=== PATIENT | male | born 1955 | race American Indian/Alaskan Native ===

== ENCOUNTER 2016-11-01 12:54 | Outpatient (CLI) | payer MEDICAID | END 2016-11-01 12:55 | disposition EMS.NT | LOC: EMS 12:54 | PROVIDERS: ATTEND Surgery | DX: R56.9 Unspecified convulsions (principal) ==

== ENCOUNTER 2019-05-22 16:52 | Outpatient (CLI) | payer MEDICAID | END 2019-05-22 16:53 | disposition critical access hospital (66) | LOC: EMS 16:52 | PROVIDERS: ATTEND Surgery | DX: R44.0 Auditory hallucinations (principal) | CPT/HCPCS: A0425; A0429; A0999 ==

== ENCOUNTER 2019-05-22 17:24 | Inpatient (IN) | payer MEDICAID ==
[2019-05-22] MEDS ORDERED: LORazepam 2 MG/ML VIAL IVP STA ×3 (17:31→23:21)
[2019-05-22] MEDS ORDERED: SODIUM CHLORIDE 0.9% 1,000 ML IV ONE (17:31)
--- NOTE | 2019-05-22 17:33 | ED Physician Documentation ---
<Mitul Truong M - Last Filed: 05/22/19 22:17> PD HPI MHE - Stated complaint Stated Complaint: MHE - Chief complaint Chief Complaint: MHE - History obtained from History obtained from: Patient - History of Present Illness Primary symptom: Psychosis (63-year-old gentleman presents by ambulance. He is obviously having a panic attack and is agitated. Reportedly has been having auditory hallucinations. Was supposed to be on Zyprexa but has not had it for about 2 months. Denies drug use, but suspicion is high because of picked at skin lesions and saying that worms are coming out of his abrasions. Denies pain or injuries.) Review of Systems Ten Systems: 10 systems reviewed and negative Constitutional: denies: Fever, Chills Respiratory: denies: Dyspnea, Cough GI: denies: Abdominal Pain, Nausea, Vomiting PD PAST MEDICAL HISTORY - Past Medical History Past Medical History: Yes - Past Surgical History Past Surgical History: Yes General: Splenectomy - Present Medications Home Medications: Ambulatory Orders Medication Instructions Recorded Confirmed Metformin HCl 1,000 mg PO BID 05/23/19 05/23/19 Metoprolol Tartrate [Lopressor] 50 mg PO BID 05/23/19 05/23/19 Tamsulosin [Flomax] 0.8 mg PO DAILY 05/23/19 05/23/19 - Allergies Allergies/Adverse Reactions: Allergies Allergy/AdvReac Type Severity Reaction Status Date / Time baclofen Allergy Hives Verified 05/22/19 17:38 ketorolac [From Toradol] Allergy Hives Verified 05/22/19 17:38 - Social History Does the pt smoke?: Yes - Family History Family history: reports: Non contributory PD ED PE NORMAL - Vitals Vital signs reviewed: Yes - General General: Alert and oriented X 3, Other (He is anxious and hyperventilating, mostly keeping his eyes closed somewhat disheveled.) - HEENT HEENT: PERRL, Pharynx benign - Neck Neck: Supple, no meningeal sign, No bony TTP - Cardiac Cardiac: RRR, No murmur - Respiratory Respiratory: No respiratory distress, Clear bilaterally - Abdomen Abdomen: Normal bowel sounds, Soft, Non tender - Back Back: No CVA TTP, No spinal TTP - Derm Derm: Other (Numerous picked at skin lesions mostly on the upper extremities. No evidence of infections.) - Extremities Extremities: Other (Deformity of the left second finger at the tip, states this is chronic. NTTP.) - Neuro Neuro: Alert and oriented X 3, No motor deficit, No sensory deficit, Normal speech PD MEDICAL DECISION MAKING - ED course ED course: 63-year-old gentleman presents with psychiatric symptoms likely due to methamphetamine intoxication. He was administered IV fluids and 2 mg of Ativan after which he was much calmer and more coherent. He was advised to stop using methamphetamines. He boarded in the emergency department for an extended period of time because no ride was available for him. He declined inpatient treatment for his drug abuse. That said because of the lack of ride in the time of night he was encouraged to stay in the emergency department pending more safe disposition in the morning. He needed a little more anxiolysis with Haldol and more Ativan. Departure - Departure Disposition: ED Place in Observation Clinical Impression: Psychiatric symptoms, Methamphetamine abuse, Dehydration Rhabdomyolysis Qualifiers: Rhabdomyolysis type: non-traumatic Qualified Code(s): M62.82 - Rhabdomyolysis Condition: Good Record reviewed to determine appropriate education?: Yes Discharge Date/Time: 05/23/19 16:50 <Royal Guerrero - Last Filed: 05/23/19 17:45> Results - Vitals Vitals: Vital Signs - 24 hr 05/22/19 05/23/19 05/23/19 22:15 02:26 04:35 Temperature Heart Rate 90 117 H 115 H Respiratory 16 20 18 Rate Blood Pressure 127/87 H 149/101 H O2 Saturation 97 100 100 05/23/19 05/23/19 05/23/19 06:51 08:21 10:14 Temperature Heart Rate 135 H 137 H 128 H Respiratory 18 26 H 22 Rate Blood Pressure 129/96 H 158/105 H 140/79 H O2 Saturation 100 98 99 05/23/19 05/23/19 13:25 14:40 Temperature 36.9 C Heart Rate 118 H 113 H Respiratory 28 H 22 Rate Blood Pressure 127/90 H O2 Saturation 98 99 Oxygen O2 Source Room air - Labs Labs: Laboratory Tests 05/22/19 05/22/19 05/22/19 18:10 18:10 18:10 WBC 6.8 RBC 5.53 Hgb 15.2 Hct 46.6 MCV 84.3 MCH 27.5 MCHC 32.6 RDW 14.2 Plt Count 170 MPV 10.1 Neut # (Auto) 4.7 Lymph # (Auto) 1.3 L [place] # (Auto) 0.6 Eos # (Auto) 0.1 Baso # (Auto) 0.1 Absolute Nucleated RBC 0.00 Nucleated RBC % 0.0 PT INR Sodium 137 Potassium 4.3 Chloride 103 Carbon Dioxide 21 Anion Gap 13.0 BUN 13 Creatinine 0.9 Estimated GFR (MDRD) 86 L Glucose 102 H Calcium 9.4 Total Bilirubin 1.1 H AST 95 H ALT 83 H Alkaline Phosphatase 93 Total Creatine Kinase 105 Total Protein 9.2 H Albumin 4.3 Globulin 4.9 H Albumin/Globulin Ratio 0.9 L Lipase 35 TSH 0.40 Urine Color Urine Clarity Urine pH Ur Specific Girard Urine Protein Urine Glucose (UA) Urine Ketones Urine Occult Blood Urine Nitrite Urine Bilirubin Urine Urobilinogen Ur Leukocyte Esterase Ur Microscopic Review Urine Culture Comments Salicylates < 6.0 Urine Opiates Screen Ur Oxycodone Screen Urine Methadone Screen Ur Propoxyphene Screen Acetaminophen < 10 L Ur Barbiturates Screen Ur Tricyclics Screen Ur Phencyclidine Scrn Ur Amphetamine Screen U Methamphetamines Scrn U Benzodiazepines Scrn Urine Cocaine Screen U Cannabinoids Screen Ethyl Alcohol < 5.0 05/22/19 05/23/19 05/23/19 18:40 14:28 14:28 WBC 14.5 H RBC 4.86 Hgb 13.2 L Hct 40.1 L MCV 82.5 MCH 27.2 MCHC 32.9 RDW 14.5 Plt Count 193 MPV 10.6 Neut # (Auto) 11.8 H Lymph # (Auto) 1.3 L [place] # (Auto) 1.2 H Eos # (Auto) 0.0 Baso # (Auto) 0.0 Absolute Nucleated RBC 0.00 Nucleated RBC % 0.0 PT INR Sodium 145 Potassium 3.7 Chloride 110 Carbon Dioxide 21 Anion Gap 14.0 H BUN 17 Creatinine 1.2 Estimated GFR (MDRD) 62 L Glucose 123 H Calcium 9.3 Total Bilirubin 2.1 H AST 103 H ALT 73 H Alkaline Phosphatase 78 Total Creatine Kinase 3030 H* Total Protein 8.3 H Albumin 4.2 Globulin 4.1 Albumin/Globulin Ratio 1.0 Lipase 32 TSH Urine Color YELLOW Urine Clarity CLEAR Urine pH 8.0 H Ur Specific Girard 1.010 Urine Protein NEGATIVE Urine Glucose (UA) NEGATIVE Urine Ketones NEGATIVE Urine Occult Blood NEGATIVE Urine Nitrite NEGATIVE Urine Bilirubin NEGATIVE Urine Urobilinogen 1 (NORMAL) Ur Leukocyte Esterase NEGATIVE Ur Microscopic Review NOT INDICATED Urine Culture Comments NOT INDICATED Salicylates Urine Opiates Screen POSITIVE H Ur Oxycodone Screen NEGATIVE Urine Methadone Screen NEGATIVE Ur Propoxyphene Screen NEGATIVE Acetaminophen Ur Barbiturates Screen NEGATIVE Ur Tricyclics Screen NEGATIVE Ur Phencyclidine Scrn NEGATIVE Ur Amphetamine Screen POSITIVE H U Methamphetamines Scrn POSITIVE H U Benzodiazepines Scrn NEGATIVE Urine Cocaine Screen NEGATIVE U Cannabinoids Screen NEGATIVE Ethyl Alcohol 05/23/19 14:28 WBC RBC Hgb Hct MCV MCH MCHC RDW Plt Count MPV Neut # (Auto) Lymph # (Auto) [place] # (Auto) Eos # (Auto) Baso # (Auto) Absolute Nucleated RBC Nucleated RBC % PT 14.3 H INR 1.3 H Sodium Potassium Chloride Carbon Dioxide Anion Gap BUN Creatinine Estimated GFR (MDRD) Glucose Calcium Total Bilirubin AST ALT Alkaline Phosphatase Total Creatine Kinase Total Protein Albumin Globulin Albumin/Globulin Ratio Lipase TSH Urine Color Urine Clarity Urine pH Ur Specific Girard Urine Protein Urine Glucose (UA) Urine Ketones Urine Occult Blood Urine Nitrite Urine Bilirubin Urine Urobilinogen Ur Leukocyte Esterase Ur Microscopic Review Urine Culture Comments Salicylates Urine Opiates Screen Ur Oxycodone Screen Urine Methadone Screen Ur Propoxyphene Screen Acetaminophen Ur Barbiturates Screen Ur Tricyclics Screen Ur Phencyclidine Scrn Ur Amphetamine Screen U Methamphetamines Scrn U Benzodiazepines Scrn Urine Cocaine Screen U Cannabinoids Screen Ethyl Alcohol PD MEDICAL DECISION MAKING - ED course ED course: Overnight the patient continued to have akasthesia and his level of interaction was poor. He required constant redirection and was unable to get comfortable in any position. We attempted to obtain a CT scan of the head and the patient was to akathetic to allow this. We administered further Zyprexa and when this had little or no effect we administered Ativan again with little effect and subsequently we administered Benadryl thinking he may have some component of extra pyramidal symptoms. This again had no significant effect. The patient had pulled his IV out earlier and we elected to administer 300 mg of ketamine and we were able to place an IV under ultrasound guidance and administer more fluids as well as perform the CT scan of the head. His repeat blood work showed elevation in his CPK and the patient has not cleared. We expected this patient to clear overnight in the emergency department and he has not. He continues to have altered level of consciousness repeat labs and CT scan were without further revelations. At this point an observation bed in the hospital until the patient clears is sought. He has some rhabdomyolysis and he will require continued hydration. Dr. Estrada is consulted in the case and graciously agrees to care for the patient in the hospital.
[2019-05-22 18:18] LABS: BASOPHILS # (AUTO) 0.1 10^3/uL (0.0-0.1); BASOPHILS % (AUTO) 0.7 %; EOSINOPHILS # (AUTO) 0.1 10^3/uL (0.0-0.7); EOSINOPHILS % (AUTO) 1.9 %; HGB - HEMOGLOBIN 15.2 g/dL (14.0-18.0); LYMPHOCYTES # (AUTO) 1.3 10^3/uL (1.5-3.5); LYMPHOCYTES % (AUTO) 19.5 %; MEAN CORPUSCULAR HEMOGLOBIN 27.5 pg (27.0-31.0); MEAN CORPUSCULAR HGB CONC 32.6 g/dL (32.0-36.0); MEAN CORPUSCULAR VOLUME 84.3 fL (80.0-94.0); MEAN PLATELET VOLUME 10.1 fL (7.4-11.4); MONOCYTES # (AUTO) 0.6 10^3/uL (0.0-1.0); MONOCYTES % (AUTO) 8.1 %; NEUTROPHILS # (AUTO) 4.7 10^3/uL (1.5-6.6); NEUTROPHILS % (AUTO) 69.4 %; PLT - PLATELET COUNT 170 10^3/uL (130-450); RED BLOOD COUNT 5.53 10^6/uL (4.70-6.10); RED CELL DISTRIBUTION WIDTH 14.2 % (12.0-15.0); WHITE BLOOD COUNT 6.8 x10^3/uL (4.8-10.8)
[2019-05-22 18:36] LABS: ACETAMINOPHEN < 10 ug/mL (10-30); ALBUMIN 4.3 g/dL (3.2-5.5); ALBUMIN/GLOBULIN RATIO 0.9 (1.0-2.2); ALKALINE PHOSPHATASE 93 IU/L (42-121); ALT ALANINE AMINOTRANSFERASE 83 IU/L (10-60); AST ASPARTATE AMINOTRANSFERASE 95 IU/L (10-42); BILIRUBIN,TOTAL 1.1 mg/dL (0.2-1.0); BUN - BLOOD UREA NITROGEN 13 mg/dL (6-20); CALCIUM 9.4 mg/dL (8.5-10.3); CARBON DIOXIDE - CO2 21 mmol/L (21-32); CHLORIDE 103 mmol/L (101-111); CK- CREATINE KINASE 105 IU/L (22-269); CREATININE 0.9 mg/dL (0.6-1.2); GFR - MDRD 86 (>89); GLUCOSE 102 mg/dL (70-100); LIPASE 35 U/L (22-51); SALICYLATE < 6.0 mg/dL; SODIUM 137 mmol/L (135-145); TOTAL PROTEIN 9.2 g/dL (6.7-8.2)
[2019-05-22 18:46] LABS: MUDS CUTOFF CONCENTRATIONS CUTOFF CONC BELOW:
[2019-05-22 18:54] LABS: BILIRUBIN,URINE NEGATIVE (NEGATIVE); GLUCOSE, URINE (UA) NEGATIVE (NEGATIVE); KETONES,URINE (UA) NEGATIVE (NEGATIVE); LEUKOCYTE ESTERASE, URINE NEGATIVE (NEGATIVE); NITRITE,URINE NEGATIVE (NEGATIVE); OCCULT BLOOD,URINE NEGATIVE (NEGATIVE); PROTEIN,URINE NEGATIVE (NEGATIVE); UROBILINOGEN,URINE 1 (NORMAL) E.U./dL (NORMAL)
[2019-05-22 18:59] LABS: CLARITY,URINE CLEAR (CLEAR)
[2019-05-22 19:05] LABS: AMPHETAMINE SCREEN,URINE POSITIVE (NEGATIVE); BENZODIAZEPINES SCREEN, URINE NEGATIVE (NEGATIVE); COCAINE SCREEN URINE NEGATIVE (NEGATIVE); METHADONE SCREEN, URINE NEGATIVE (NEGATIVE); METHAMPHETAMINES SCREEN, URINE POSITIVE (NEGATIVE); OPIATE SCREEN, URINE POSITIVE (NEGATIVE); OXYCODONE SCREEN, URINE NEGATIVE (NEGATIVE); PROPOXYPHENE SCREEN, URINE NEGATIVE (NEGATIVE); TRICYCLIC ANTIDEPRESSANT,URINE NEGATIVE (NEGATIVE)
[2019-05-22] MEDS ORDERED: HALOPERIDOL 5 MG/ML VIAL IVP ONE (21:59)
[2019-05-22] MEDS ORDERED: LORazepam 2 MG/ML VIAL ONE (23:21)
[2019-05-22] MEDS ORDERED: OLANZapine 10 MG VIAL IM STA (23:43)
[2019-05-23] MEDS ORDERED: diazePAM INJ 5 MG/ML SYRINGE IVP STA (00:18)
[2019-05-23] MEDS ORDERED: diazePAM INJ 5 MG/ML SYRINGE ONE (00:19)
[2019-05-23] MEDS ORDERED: OLANZapine 10 MG VIAL IM STA (10:01)
[2019-05-23] MEDS ORDERED: LORazepam 2 MG/ML VIAL IM STA (11:33)
[2019-05-23] MEDS ORDERED: diphenhydrAMINE INJ 50 MG/ML VIAL IM STA (13:15)
[2019-05-23] MEDS ORDERED: KETAMINE 500 MG/10 ML VIAL IM STA (13:56)
[2019-05-23] MEDS ORDERED: SODIUM CHLORIDE 0.9% 1,000 ML IV ONE ×3 (14:26→15:02)
[2019-05-23 14:38] LABS: BASOPHILS % (AUTO) 0.3 %; EOSINOPHILS % (AUTO) 0.1 %; HGB - HEMOGLOBIN 13.2 g/dL (14.0-18.0); LYMPHOCYTES # (AUTO) 1.3 10^3/uL (1.5-3.5); MEAN CORPUSCULAR HEMOGLOBIN 27.2 pg (27.0-31.0); MEAN CORPUSCULAR HGB CONC 32.9 g/dL (32.0-36.0); MEAN CORPUSCULAR VOLUME 82.5 fL (80.0-94.0); MEAN PLATELET VOLUME 10.6 fL (7.4-11.4); MONOCYTES # (AUTO) 1.2 10^3/uL (0.0-1.0); MONOCYTES % (AUTO) 8.3 %; NEUTROPHILS # (AUTO) 11.8 10^3/uL (1.5-6.6); NEUTROPHILS % (AUTO) 81.5 %; PLT - PLATELET COUNT 193 10^3/uL (130-450); RED BLOOD COUNT 4.86 10^6/uL (4.70-6.10); RED CELL DISTRIBUTION WIDTH 14.5 % (12.0-15.0); WHITE BLOOD COUNT 14.5 x10^3/uL (4.8-10.8)
[2019-05-23 14:59] LABS: ALBUMIN 4.2 g/dL (3.2-5.5); BILIRUBIN,TOTAL 2.1 mg/dL (0.2-1.0); CALCIUM 9.3 mg/dL (8.5-10.3); CREATININE 1.2 mg/dL (0.6-1.2); TOTAL PROTEIN 8.3 g/dL (6.7-8.2)
--- NOTE | 2019-05-23 15:01 | CT Report ---
Reason: altered LOC Procedure Date: 05/23/2019 Accession Number: [id number] / [id number] Procedure: CT - HEAD WO CPT Code: Final Report FULL RESULT: EXAM: CT HEAD EXAM DATE: 05/23/2019 02:37 PM. CLINICAL HISTORY: Altered level of consciousness. COMPARISON: None. TECHNIQUE: Multiaxial CT images were obtained from the foramen magnum to the vertex. Reformats: Sagittal and coronal. IV contrast: None. In accordance with CT protocol optimization, one or more of the following dose reduction techniques were utilized for this exam: automated exposure control, adjustment of mA and/or KV based on patient size, or use of iterative reconstructive technique. FINDINGS: PARENCHYMA: No acute hemorrhage, transcortical infarction or mass. Normal gorman-white differentiation. EXTRA-AXIAL SPACES: No extra-axial fluid collections. No midline shift. VENTRICLES/SULCI: Enlargement of the lateral and third ventricles with prominence of the cortical sulci consistent with mild cerebral volume loss. VASCULAR STRUCTURES: Arterial calcifications consistent with atherosclerosis. SINUSES: The visible paranasal sinuses and mastoid air cells are unremarkable. ORBITS: Unremarkable. BONES: No displaced acute calvarial fracture. Old left nasal bone fracture. OTHER: None. IMPRESSION: 1. No acute intracranial findings. RADIA
[2019-05-23] MEDS ORDERED: ONDANSETRON 4 MG/2 ML VIAL IVP PRN (15:52)
[2019-05-23 16:18] LABS: INR 1.3 (0.8-1.2); PT - PROTHROMBIN TIME 14.3 secs (9.9-12.6)
--- NOTE | 2019-05-23 16:24 | PHARMACY PROGRESS NOTE ---
- Best Possible Medication History Admit Date and Time: 05/23/19 1547 Processed by: Pharmacy Medication History completed: Yes Patient Interview: Pt unable to participate Secondary Source(s): Pharmacy records, Insurance records As the person ultimately responsible for medication therapy, providers are able to order a medication from an existing home medication list in [facility] via the "Reconcile Routine" prior to Confirmation of that medication by youth accommodation support worker. Such practice is discouraged except when the physician, in their clinical judgment, deems that a medical need exists for a medication without regard to previous use.
--- NOTE | 2019-05-23 16:49 | XRAY Report ---
Reason: Altered mental status Procedure Date: 05/23/2019 Accession Number: [id number] / [id number] Procedure: XR - Chest 1 View X-Ray CPT Code: 93763 Final Report FULL RESULT: EXAM: CHEST RADIOGRAPHY EXAM DATE: 05/23/2019 04:14 PM. CLINICAL HISTORY: Altered mental status. COMPARISON: XR RIBS UNILAT W/ PA CHEST MIN 3 VIEWS 05/01/2012 3:17 PM. TECHNIQUE: 1 view. FINDINGS: LUNGS: The lungs are hypoventilatory with compressive changes. The aerated portions of the lungs are clear, however the lung bases are poorly evaluated. PLEURA: No significant pleural effusion. No clinically significant pneumothorax. MEDIASTINUM: Heart and mediastinal contours are notable for aortic calcification. The cardiac silhouette is normal in size. BONES: Status post cervical spine fusion. Again old left-sided rib fracture deformities. IMPRESSION: Expiratory chest x-ray. No acute disease within the limits of this study, however, the lung bases are poorly evaluated and cannot exclude a basilar process. RADIA
[2019-05-23 16:56] LABS: VBG BASE EXCESS -3.4 mmol/L (-2 - +2); VBG PCO2 28.5 mmHg (41-51); VBG PH 7.448 (7.31-7.41); VBG TOTAL CO2 20.1 mmol/L (24-29)
[2019-05-23] MEDS ORDERED: LIDOCAINE 2% URO-JET 5 ML SYRINGE UR ONE (17:18)
[2019-05-23] MEDS: DEXTROSE 5%-0.9% NACL 1,000 ML IV SCH (18:00)
[2019-05-23] MEDS: LORazepam 2 MG/ML VIAL IVP PRN ×3 (18:00→23:41)
[2019-05-23] MEDS: SODIUM CHLORIDE FLUSH 0.9% 10 ML SYRINGE IVP SCH ×2 (18:10→21:53)
[2019-05-23] MEDS: INSULIN REGULAR HUMAN 300 UNIT/3 ML VIAL SUBQ SCH (18:24)
--- NOTE | 2019-05-23 18:35 | HISTORY & PHYSICAL EXAMINATION ---
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 The patient presented to the Emergency Room with complaints of auditory hallucinations and "not feeling right." There was a history obtained from the by the ER provider that stated that he is usually on Zyprexa, but has not been taking it for 2 months. In the Emergency Room, he was confused, having active hallucinations, and a drug screen showed the presence of methamphetamine and amphetamine. The ER management included waiting for the effect of Methamphetamine to dissipate in order to either discharge him or have a psych evaluation. He continued to have restlessness over a 12-hour period and eventually the decision by the ER doctor was to have a head CT done. Because he was so restless and agitated, had pulled out his IV, he required sedatives in order to undergo the CT, and he received Zyprexa, Ativan, Valium and eventually Ketamine, which gave him adequate sedation to not move in the CT scanner. The CT showed no active problems. Following the Ketamine, he became obtunded, and repeat lab tests were done that showed a new elevation of total creatinine kinase from 105 the previous evening to now 3030, approximately 22 hours later. The patient is being admitted for management of new rhabdomyolysis, and his altered mental status after sedatives with akathisia (restlessness) likley related to Meth use. PAST MEDICAL HISTORY: Psych disorder on Zyprexa, IV drug use history, possibly diabetes since Metformin is on his medication list. ALLERGIES: BACLOFEN, KETOROLAC. MEDICATIONS: Unknown, but are possibly: 1. Flomax. 2. Metformin. 3. Lopressor. REVIEW OF SYSTEMS: One old medical record in the form of a discharge summary was obtained from [facility] from one month ago, and it indicates that the patient has a history of previous MIs, IV methamphetamine and heroin use, and was sent from the methadone clinic to [facility] at that time to evaluate an irregular heart rate and chest pain. On that discharge summary, it shows that he was taking metformin, naloxone, olanzapine, tamsulosin, and metoprolol. In the past, he was on Xanax, aspirin, sublingual nitroglycerin p.r.n., and Lidoderm patch. From this review of his discharge summary, the review of systems was performed, the pertinent positives are listed, and the rest are negative. PAST SURGICAL HISTORY: Fusion of his cervical spine and lumbar fusion. SOCIAL HISTORY: Currently a smoker, former alcohol user, but not currently, former iv heroin use, and current methamphetamine user. FAMILY HISTORY: Unobtainable at this time because he is obtunded and it does not show up on the discharge summary from [facility]. PHYSICAL EXAMINATION GENERAL: Poorly kempt male who appears older than his age. He is restless and intermittently moving all 4 extremities, picking at his skin and raising his head, but does not open his eyes. He has moaned and has answered with 1- or 2- word responses, and he did follow the nurses instructions once and raised his arm for the blood pressure cuff to be applied. VITAL SIGNS: Currently, the blood pressure is 145/110, heart rate 115-120 in sinus tachycardia, room air saturation 97%, afebrile. HEENT: Reveals surgery of the tip of his nose, which appears to have been amputated. Poor oral dentition. Dry oral mucosa. NECK: Without JVD in a supine position. CHEST: Clear. HEART: Distant, tachycardic. ABDOMEN: Soft, not distended. EXTREMITIES: No clubbing, cyanosis or edema. Multiple scars in different phases of healing of his forearms and his lower legs. NEUROLOGIC: Obtunded, moving all extremities spontaneously, does not communicate, occasionally moaning, intermittently restless and picking at his body parts. LABORATORY DATA: Normal electrolytes. Anion gap 14, glucose 123. Bilirubin went from 1.1 to 2.1, AST 95-103, ALT 83-73. Creatinine kinase 105 then increased to 3030. Normal albumen and lipase normal. Normal TSH of 0.4. White blood count was 6.8 last night, and this afternoon is 14.5. Hemoglobin is now 13.2, normal platelet count 193. Urinalysis not remarkable except a pH of 8. Venous blood gases a pH of 7.44. The INR is elevated mildly at 1.3. Toxicology was done, when he first presented 20 hours ago, showed positive opiates, no salicylates, no acetaminophen, positive amphetamines and methamphetamines. Chest x-ray: No active pulmonary disease. No EKG was done. Head CT showed enlargement of the ventricles and mild cerebral volume loss. Arterial calcifications consistent with atherosclerosis. No acute intracranial findings. IMPRESSION/DIAGNOSES 1. Rhabdomyolysis. 2. Akathisia. 3. Tachycardia. 4. Methamphetamine use. 5. History of psychiatric disorder. 6. Intravenous drug abuse. 7. Diabetes mellitus. 8. Elevated liver function tests. PLAN: Admit the patient to the ICU on telemetry. Begin IV fluids for treating the rhabdomyolysis, and follow his total CK serum level daily. Use Ativan if needed for agitation, and resume his Zyprexa either IM or p.o. dosing. Begin point of care glucose checks and sliding scale insulin coverage in a patient who is n.p.o., and check A1c level in the morning. Obtain an EKG because of the tachycardia. When he is more awake, he may require 1:1 monitoring because of the psych disorder and unknown recent history. Follow his CMP daily, regarding the elevated liver function tests. CODE STATUS: FULL CODE. DEEP VENOUS THROMBOSIS PROPHYLAXIS: SCDs. ATTESTATION: The patient is expected to be discharged or transferred to another facility within 96 hours: Yes. cc: Bailee Kaplan MD TD: 05/23/2019 18:02 MTDD
[2019-05-23] MEDS ORDERED: ethyl alcohoL 62% SWAB AMPULE NAS ONE (20:35)
[2019-05-23] MEDS: FAMOTIDINE 20 MG/2 ML VIAL IVP SCH (20:36)
[2019-05-23] MEDS: ethyl alcohoL 62% SWAB AMPULE NAS SCH (20:42)
[2019-05-23] MEDS ORDERED: HALOPERIDOL 5 MG/ML VIAL IVP ONE (21:24)
[2019-05-23] MEDS: SODIUM CHLORIDE FLUSH 0.9% 10 ML SYRINGE IVP PRN ×2 (21:54→23:41)
[2019-05-24] MEDS: INSULIN REGULAR HUMAN 300 UNIT/3 ML VIAL SUBQ SCH ×4 (00:02→18:30)
[2019-05-24] MEDS: HYDROmorphone 1 MG/ML SYRINGE IVP PRN ×4 (03:05→21:53)
[2019-05-24] MEDS: DEXTROSE 5%-0.9% NACL 1,000 ML IV SCH (04:25)
[2019-05-24 05:06] LABS: BASOPHILS % (AUTO) 0.3 %; EOSINOPHILS # (AUTO) 0.1 10^3/uL (0.0-0.7); EOSINOPHILS % (AUTO) 0.9 %; HGB - HEMOGLOBIN 11.9 g/dL (14.0-18.0); LYMPHOCYTES # (AUTO) 1.6 10^3/uL (1.5-3.5); LYMPHOCYTES % (AUTO) 15.8 %; MEAN CORPUSCULAR HEMOGLOBIN 26.4 pg (27.0-31.0); MEAN CORPUSCULAR HGB CONC 31.6 g/dL (32.0-36.0); MEAN CORPUSCULAR VOLUME 83.6 fL (80.0-94.0); MEAN PLATELET VOLUME 10.2 fL (7.4-11.4); MONOCYTES # (AUTO) 0.8 10^3/uL (0.0-1.0); MONOCYTES % (AUTO) 7.8 %; NEUTROPHILS # (AUTO) 7.6 10^3/uL (1.5-6.6); NEUTROPHILS % (AUTO) 74.7 %; PLT - PLATELET COUNT 148 10^3/uL (130-450); RED BLOOD COUNT 4.51 10^6/uL (4.70-6.10); RED CELL DISTRIBUTION WIDTH 14.6 % (12.0-15.0); WHITE BLOOD COUNT 10.2 x10^3/uL (4.8-10.8)
[2019-05-24 05:09] LABS: VBG PH 7.399 (7.31-7.41)
[2019-05-24 05:24] LABS: HB2 TOTAL 12.4 g/dL; HEMOGLOBIN A1C 0.59 g/dL; HEMOGLOBIN A1C % 6.5 % (4.6-6.2)
[2019-05-24 06:14] LABS: ALBUMIN 3.4 g/dL (3.2-5.5); ALBUMIN/GLOBULIN RATIO 0.9 (1.0-2.2); BILIRUBIN,TOTAL 1.3 mg/dL (0.2-1.0); CALCIUM 8.3 mg/dL (8.5-10.3); CREATININE 0.9 mg/dL (0.6-1.2); MAGNESIUM 1.8 mg/dL (1.7-2.8); PHOSPHORUS 3.8 mg/dL (2.5-4.6); TOTAL PROTEIN 7.4 g/dL (6.7-8.2)
[2019-05-24] MEDS: POTASSIUM CHLOR 10 MEQ/100 ML 10 MEQ/100 ML BAG IV SCH ×4 (07:05→10:47)
[2019-05-24] MEDS ORDERED: SODIUM CHLORIDE 0.9% 1,000 ML IV ONE (08:02)
[2019-05-24] MEDS ORDERED: HALOPERIDOL 5 MG/ML VIAL IVP PRN (08:17)
[2019-05-24] MEDS: SODIUM CHLORIDE FLUSH 0.9% 10 ML SYRINGE IVP PRN (08:45)
[2019-05-24] MEDS: FAMOTIDINE 20 MG/2 ML VIAL IVP SCH ×2 (08:45→20:32)
[2019-05-24] MEDS: ethyl alcohoL 62% SWAB AMPULE NAS SCH ×2 (08:49→20:32)
[2019-05-24] MEDS: SODIUM CHLORIDE FLUSH 0.9% 10 ML SYRINGE IVP SCH ×2 (08:54→17:17)
[2019-05-24] MEDS ORDERED: OLANZapine 10 MG VIAL IM SCH ×2 (09:00)
[2019-05-24] MEDS: SODIUM CHLORIDE 0.9% 1,000 ML IV SCH ×3 (09:21→22:58)
--- NOTE | 2019-05-24 15:59 | PROVIDER PROGRESS NOTE ---
Assessment/Plan - Problem List (1) Rhabdomyolysis Qualifiers: Rhabdomyolysis type: non-traumatic Qualified Code(s): M62.82 - Rhabdomyolysis Assessment/Plan: He continued to be restless all night, but not communicative. Finally when he received Demerol for poissible pain, he became sedated. With the constant muscular restlessness, his total CK has risen even further, from 105>> 3030 when admitted yesterday afternoon>> 4000. Continue iv fluids, and monitor renal function. Follow total CK daily. (2) Motor restlessness Assessment/Plan: The suspicion is that this was due to methamphetamine excess. He also had a paradoxic response to Valium, Ativan and Haldol; he became more agitated and restless after all of these. Increase Zyprexa dose to 10 mg daily IM or p.o. when he wakes up. Demerol for pain control/sedation today to prevent continued muscle activity/restlessness and help with the rhabdomyolysis clear. (3) Dehydration Assessment/Plan: Continue with IV hydration until he is able to take p.o. diet. Follow CMP daily. (4) Hypokalemia Assessment/Plan: Replace. Follow BMP. (5) Methamphetamine abuse Assessment/Plan: As above (6) Psychiatric symptoms Assessment/Plan: The details of this are not known but his had told the emergency room doctor that he was on Zyprexa and stopped taking it 2 months ago. (7) IVDU (intravenous drug user) Assessment/Plan: As per old discharge summary records from [facility]. (8) Skin sore Assessment/Plan: The appearance is that he has been picking at multiple papule-like lesions all over his body. This is very likely from his meth use. (9) Abnormal EKG Assessment/Plan: The admission EKG, done due to tachycardia, was only possible to be done today, because of his restlessness until sedated today. The EKG shows early R/S transition, suggestive of Cor Pulmonale. His Hx does not state cigarette use. He is not awake enough to provide any other Hx (such as smoking other substances). He is not desaturating or appear in respiratory distress. Will order an Echo to screen for R heart disease. - Current Meds Current Meds: Current Medications Generic Name Dose Route Start Last Admin Trade Name Freq PRN Reason Stop Dose Admin Alcohol 1 amp 05/23/19 21:00 05/24/19 08:49 Nozin LONI 1 amp BID ELOISE Administration Famotidine 20 mg 05/23/19 21:00 05/24/19 08:45 Pepcid IVP 20 mg BID ELOISE Administration Hydromorphone HCl 1 mg 05/24/19 02:17 05/24/19 06:17 Dilaudid Inj Syringe IVP 1 mg Q3H PRN Administration PAIN Sodium Chloride 1,000 mls @ 150 mls/hr 05/24/19 09:00 05/24/19 15:00 Normal Saline 0.9% IV 150 mls/hr .Q6H40M ELOISE Infusion Insulin Human Regular 1 - 5 unit 05/23/19 18:00 05/24/19 12:14 Humulin R SUBQ Not Given Q6HR ELOISE Protocol Lorazepam 2 mg 05/23/19 16:00 05/23/19 23:41 Ativan Inj (Vial) IVP 2 mg Q2H PRN Administration Agitation Olanzapine 10 mg 05/24/19 09:00 05/24/19 09:39 Zyprexa Im IM 10 mg DAILY ELOISE Administration Sodium Chloride 10 ml 05/23/19 17:00 05/24/19 08:54 Normal Saline Flush 0.9% IVP Not Given 0100,0900,1700 ELOISE Sodium Chloride 10 ml 05/23/19 15:52 05/24/19 08:45 Normal Saline Flush 0.9% IVP 10 ml PRN PRN Administration NEEDED PER PROVIDER ORDERS Sterile Water 2.1 ml 05/24/19 09:00 05/24/19 09:39 Sterile Water MC 2.1 ml DAILY ELOISE Administration - Lab Result Fish Bone Diagrams: 05/24/19 04:52 05/24/19 04:52 - EKG Results EKG Interpreted Independently: Yes EKG Comparison: Old EKG unavailable EKG Findings: NSR, PACs, early R/S transition. - Additional Planning My Orders: My Active Orders 05/23/19 15:52 Activity Orders [RC] Q2HR Daily Weight [RC] 0600 IO [RC] Q1HR Initiate Bowel Care Protocol [RC] QSHIFT Initiate ICU Electrolyte Prot. [RC] .protocol Initiate Personal Care Protoco [RC] .protocol Vital Signs [RC] Q2HR NPO [DIET] Ondansetron Inj [Zofran Inj] 4 mg IVP Q6HR PRN Sodium Chloride Flush 0.9% [Normal Saline Flush 0.9%] 10 ml IVP PRN PRN Code Status [OTHERS] Routine Condition of Patient [OTHERS] Routine DVT Prophylaxis [OTHERS] Routine 05/23/19 15:53 Oral Care - Nursing [RC] Routine Oxygen Therapy [RC] .PRN SCDs [RC] QSHIFT Telemetry- [RC] Q4HR Turn and Reposition [RC] Routine 05/23/19 16:00 Initiate Line Care Protocol [RC] QSHIFT LORazepam INJ [Ativan Inj (Vial)] 2 mg IVP Q2H PRN 05/23/19 16:03 Miscellaenous Nursing Order [RC] ONCE 05/23/19 16:56 Blood Glucose POC [RC] 0000,0600,1200,1800 Initiate Hypoglycemia Protocol [RC] .protocol 05/23/19 17:00 Sodium Chloride Flush 0.9% [Normal Saline Flush 0.9%] 10 ml IVP 0100,0900,1700 05/23/19 17:17 Perez Insertion [RC] QSHIFT 05/23/19 18:00 Insulin Regular Human [Humulin R] 1 - 5 unit SUBQ Q6HR 05/23/19 21:00 Famotidine [Pepcid] 20 mg IVP BID ethyl alcohoL 62% swab [NoZin] 1 amp LONI BID 05/24/19 09:00 OLANZapine IM [ZyPREXA IM] 10 mg IM DAILY Water For Injection,Sterile [Sterile Water] 2.1 ml MC DAILY 05/25/19 05:00 CALCIUM, IONIZED ([facility]) [BG] DAILYLAB CBC - COMP BLD CT W/AUTO DIFF [HEME] DAILYLAB CK- CREATINE KINASE [CHEM] DAILYLAB CMP [COMPREHENSIVE METABOLIC PANEL] [CHEM] DAILYLAB PHOSPHORUS [CHEM] DAILYLAB 05/26/19 05:00 CALCIUM, IONIZED ([facility]) [BG] DAILYLAB CBC - COMP BLD CT W/AUTO DIFF [HEME] DAILYLAB CK- CREATINE KINASE [CHEM] DAILYLAB CMP [COMPREHENSIVE METABOLIC PANEL] [CHEM] DAILYLAB PHOSPHORUS [CHEM] DAILYLAB Subjective - Subjective Patient Reports: Other (Sedated and sleeping this a.m.) Objective Vital Signs: Vital Signs - 24 hr 05/23/19 05/23/19 05/23/19 16:25 16:45 18:00 Temperature 36.6 C Heart Rate 115 H Heart Rate [ 115 H 105 H Monitoring electrodes] Respiratory 22 38 H 34 H Rate Blood Pressure 142/71 H Blood Pressure 145/113 H 138/99 H [Left Brachial artery] O2 Saturation 98 97 97 05/23/19 05/23/19 05/23/19 19:00 19:12 20:25 Temperature 37.0 C 37.1 C Heart Rate Heart Rate [ 105 H 109 H Monitoring electrodes] Respiratory 21 23 Rate Blood Pressure Blood Pressure 131/105 H 137/88 H [Left Brachial artery] O2 Saturation 99 99 05/23/19 05/23/19 05/24/19 22:00 23:24 00:28 Temperature 37.7 C H Heart Rate Heart Rate [ 96 108 H Monitoring electrodes] Respiratory 28 H 28 H Rate Blood Pressure Blood Pressure 130/95 H 138/91 H [Left Brachial artery] O2 Saturation 97 100 05/24/19 05/24/19 05/24/19 02:00 03:08 04:00 Temperature 36.9 C Heart Rate Heart Rate [ 93 95 Monitoring electrodes] Respiratory 33 H 25 H Rate Blood Pressure Blood Pressure 136/80 H 125/81 H [Left Brachial artery] O2 Saturation 98 96 05/24/19 05/24/19 05/24/19 06:00 07:00 09:00 Temperature 36.7 C Heart Rate Heart Rate [ 97 105 H 98 Monitoring electrodes] Respiratory 30 H 28 H 27 H Rate Blood Pressure Blood Pressure 129/86 H 134/78 H 104/60 [Left Brachial artery] O2 Saturation 97 96 98 05/24/19 05/24/19 05/24/19 11:00 12:00 15:00 Temperature Heart Rate Heart Rate [ 110 H 100 98 Monitoring electrodes] Respiratory 14 33 H 38 H Rate Blood Pressure Blood Pressure 127/72 120/78 118/77 [Left Brachial artery] O2 Saturation 100 94 100 Oxygen O2 Source Room air I&O (Last 24 Hrs): Intake and Output Totals x24h 05/22/19 05/23/19 05/24/19 23:59 23:59 23:59 Intake Total 1000 3500 3127.499 Output Total 1220 960 Balance 1000 2280 2167.499 General: Other (sedated) HEENT: Other (Dry mucosa, poorly jain.) Neck: Supple Neuro: Other (Sedated (after 2 days of agitation, delerium and restlessness).) Cardiovascular: Regular rate, No murmurs Respiratory: No respiratory distress, Breath sounds nml Abdomen: Soft Extremities: No edema, Other (Dirt under his fingernails, multiple excoriated papules of his extremities and trunk) - Results Results: Laboratory Results WBC 10.2 x10^3/uL (4.8-10.8) 05/24/19 04:52 RBC 4.51 10^6/uL (4.70-6.10) L 05/24/19 04:52 Hgb 11.9 g/dL (14.0-18.0) L 05/24/19 04:52 Hct 37.7 % (42.0-52.0) L 05/24/19 04:52 MCV 83.6 fL (80.0-94.0) 05/24/19 04:52 MCH 26.4 pg (27.0-31.0) L 05/24/19 04:52 MCHC 31.6 g/dL (32.0-36.0) L 05/24/19 04:52 RDW 14.6 % (12.0-15.0) 05/24/19 04:52 Plt Count 148 10^3/uL (130-450) 05/24/19 04:52 MPV 10.2 fL (7.4-11.4) 05/24/19 04:52 Neut # (Auto) 7.6 10^3/uL (1.5-6.6) H 05/24/19 04:52 Lymph # (Auto) 1.6 10^3/uL (1.5-3.5) 05/24/19 04:52 [place] # (Auto) 0.8 10^3/uL (0.0-1.0) 05/24/19 04:52 Eos # (Auto) 0.1 10^3/uL (0.0-0.7) 05/24/19 04:52 Baso # (Auto) 0.0 10^3/uL (0.0-0.1) 05/24/19 04:52 Absolute Nucleated RBC 0.00 x10^3/uL 05/24/19 04:52 Nucleated RBC % 0.0 /100WBC 05/24/19 04:52 PT 14.3 secs (9.9-12.6) H 05/23/19 14:28 INR 1.3 (0.8-1.2) H 05/23/19 14:28 VBG pH 7.399 (7.31-7.41) 05/24/19 04:52 VBG pCO2 28.5 mmHg (41-51) L 05/23/19 16:50 VBG pO2 60.0 mmHg (25-47) H 05/23/19 16:50 VBG HCO3 19.3 mmol/L (23-28) L 05/23/19 16:50 VBG Total CO2 20.1 mmol/L (24-29) L 05/23/19 16:50 VBG O2 Saturation 91.0 % (60-80) H 05/23/19 16:50 VBG Base Excess -3.4 mmol/L (-2 - +2) L 05/23/19 16:50 Ionized Calcium 1.09 mmol/L (1.15-1.33) L 05/24/19 04:52 Sodium 142 mmol/L (135-145) 05/24/19 04:52 Potassium 3.3 mmol/L (3.5-5.0) L 05/24/19 04:52 Chloride 115 mmol/L (101-111) H 05/24/19 04:52 Carbon Dioxide 22 mmol/L (21-32) 05/24/19 04:52 Anion Gap 5.0 (6-13) L 05/24/19 04:52 BUN 15 mg/dL (6-20) 05/24/19 04:52 Creatinine 0.9 mg/dL (0.6-1.2) 05/24/19 04:52 Estimated GFR (MDRD) 86 (>89) L 05/24/19 04:52 Glucose 103 mg/dL (70-100) H 05/24/19 04:52 Glycated Hemoglobin 6.5 % (4.6-6.2) H 05/24/19 04:52 Estim Average Glucose 140 (70-100) H 05/24/19 04:52 Calcium 8.3 mg/dL (8.5-10.3) L 05/24/19 04:52 Phosphorus 3.8 mg/dL (2.5-4.6) 05/24/19 04:52 Magnesium 1.8 mg/dL (1.7-2.8) 05/24/19 04:52 Total Bilirubin 1.3 mg/dL (0.2-1.0) H 05/24/19 04:52 AST 133 IU/L (10-42) H 05/24/19 04:52 ALT 61 IU/L (10-60) H 05/24/19 04:52 Alkaline Phosphatase 60 IU/L (42-121) 05/24/19 04:52 Total Creatine Kinase 4329 IU/L (22-269) H* 05/24/19 04:52 Total Protein 7.4 g/dL (6.7-8.2) 05/24/19 04:52 Albumin 3.4 g/dL (3.2-5.5) 05/24/19 04:52 Globulin 4.0 g/dL (2.1-4.2) 05/24/19 04:52 Albumin/Globulin Ratio 0.9 (1.0-2.2) L 05/24/19 04:52 Lipase 32 U/L (22-51) 05/23/19 14:28 TSH 0.40 uIU/mL (0.34-5.60) 05/22/19 18:10 Urine Color YELLOW 05/22/19 18:40 Urine Clarity CLEAR (CLEAR) 05/22/19 18:40 Urine pH 8.0 PH (5.0-7.5) H 05/22/19 18:40 Ur Specific [place] 1.010 (1.002-1.030) 05/22/19 18:40 Urine Protein NEGATIVE mg/dL (NEGATIVE) 05/22/19 18:40 Urine Glucose (UA) NEGATIVE mg/dL (NEGATIVE) 05/22/19 18:40 Urine Ketones NEGATIVE mg/dL (NEGATIVE) 05/22/19 18:40 Urine Occult Blood NEGATIVE (NEGATIVE) 05/22/19 18:40 Urine Nitrite NEGATIVE (NEGATIVE) 05/22/19 18:40 Urine Bilirubin NEGATIVE (NEGATIVE) 05/22/19 18:40 Urine Urobilinogen 1 (NORMAL) E.U./dL (NORMAL) 05/22/19 18:40 Ur Leukocyte Esterase NEGATIVE (NEGATIVE) 05/22/19 18:40 Ur Microscopic Review NOT INDICATED 05/22/19 18:40 Urine Culture Comments NOT INDICATED 05/22/19 18:40 Nasal Screen MRSA (PCR) POSITIVE (NEGATIVE) A* 05/23/19 16:45 Salicylates < 6.0 mg/dL 05/22/19 18:10 Urine Opiates Screen POSITIVE (NEGATIVE) H 05/22/19 18:40 Ur Oxycodone Screen NEGATIVE (NEGATIVE) 05/22/19 18:40 Urine Methadone Screen NEGATIVE (NEGATIVE) 05/22/19 18:40 Ur Propoxyphene Screen NEGATIVE (NEGATIVE) 05/22/19 18:40 Acetaminophen < 10 ug/mL (10-30) L 05/22/19 18:10 Ur Barbiturates Screen NEGATIVE (NEGATIVE) 05/22/19 18:40 Ur Tricyclics Screen NEGATIVE (NEGATIVE) 05/22/19 18:40 Ur Phencyclidine Scrn NEGATIVE (NEGATIVE) 05/22/19 18:40 Ur Amphetamine Screen POSITIVE (NEGATIVE) H 05/22/19 18:40 U Methamphetamines Scrn POSITIVE (NEGATIVE) H 05/22/19 18:40 U Benzodiazepines Scrn NEGATIVE (NEGATIVE) 05/22/19 18:40 Urine Cocaine Screen NEGATIVE (NEGATIVE) 05/22/19 18:40 U Cannabinoids Screen NEGATIVE (NEGATIVE) 05/22/19 18:40 Ethyl Alcohol < 5.0 mg/dL 05/22/19 18:10
[2019-05-25] MEDS: SODIUM CHLORIDE FLUSH 0.9% 10 ML SYRINGE IVP SCH ×4 (00:14→23:26)
[2019-05-25] MEDS: HYDROmorphone 1 MG/ML SYRINGE IVP PRN ×3 (02:42→23:25)
[2019-05-25 05:04] LABS: BASOPHILS % (AUTO) 0.4 %; EOSINOPHILS # (AUTO) 0.2 10^3/uL (0.0-0.7); EOSINOPHILS % (AUTO) 2.1 %; HGB - HEMOGLOBIN 11.5 g/dL (14.0-18.0); LYMPHOCYTES # (AUTO) 1.6 10^3/uL (1.5-3.5); LYMPHOCYTES % (AUTO) 17.7 %; MEAN CORPUSCULAR HEMOGLOBIN 27.6 pg (27.0-31.0); MEAN CORPUSCULAR HGB CONC 32.3 g/dL (32.0-36.0); MEAN CORPUSCULAR VOLUME 85.4 fL (80.0-94.0); MEAN PLATELET VOLUME 10.4 fL (7.4-11.4); MONOCYTES # (AUTO) 0.8 10^3/uL (0.0-1.0); NEUTROPHILS # (AUTO) 6.2 10^3/uL (1.5-6.6); PLT - PLATELET COUNT 133 10^3/uL (130-450); RED BLOOD COUNT 4.17 10^6/uL (4.70-6.10); RED CELL DISTRIBUTION WIDTH 14.5 % (12.0-15.0); VBG PH 7.415 (7.31-7.41); WHITE BLOOD COUNT 8.9 x10^3/uL (4.8-10.8)
[2019-05-25 05:26] LABS: ALBUMIN 2.9 g/dL (3.2-5.5); ALBUMIN/GLOBULIN RATIO 0.8 (1.0-2.2); CALCIUM 7.9 mg/dL (8.5-10.3); CREATININE 0.9 mg/dL (0.6-1.2); MAGNESIUM 1.5 mg/dL (1.7-2.8); PHOSPHORUS 3.3 mg/dL (2.5-4.6); TOTAL PROTEIN 6.4 g/dL (6.7-8.2)
[2019-05-25] MEDS: SODIUM CHLORIDE 0.9% 1,000 ML IV SCH ×3 (05:48→21:31)
[2019-05-25] MEDS ORDERED: MAGNESIUM SULFATE 2 GRAM 2 GM/50 ML BAG IV ONE (05:55)
[2019-05-25] MEDS ORDERED: POTASSIUM CHLORIDE 20 MEQ TABLET PO ONE (08:00)
[2019-05-25] MEDS ORDERED: CALCIUM GLUCONATE 1,000 MG in SODIUM CHLORIDE 0.9% 50 ML IV ONE (08:00)
[2019-05-25] MEDS: INSULIN ASPART 300 UNIT/3 ML PEN SUBQ SCH ×4 (08:06→21:21)
[2019-05-25] MEDS: FAMOTIDINE 20 MG/2 ML VIAL IVP SCH ×2 (08:16→21:21)
[2019-05-25] MEDS: ethyl alcohoL 62% SWAB AMPULE NAS SCH ×2 (08:16→21:21)
[2019-05-25] MEDS: LORazepam 0.5 MG TABLET PO PRN ×2 (09:38→18:02)
[2019-05-25] MEDS: OLANZapine ODT 5 MG TABLET TL PRN (09:38)
--- NOTE | 2019-05-25 15:47 | PROVIDER PROGRESS NOTE ---
Subjective - Prog Note Date Prog Note Date: 05/25/19 Prog Note Time: 15:47 - Subjective Pt reports feeling: Improved Subjective: He is awake. Appropriate. Alert. Very weak but able to eat, get up and walk a little bit. He says it was "a bad batch of speed". He had no intention of killing himself. He thinks all of this was because he brought from the wrong person. Current Medications - Current Medications Current Medications: Active Medications Alcohol (Nozin) 1 amp LONI BID [facility] Last Admin: 05/25/19 08:16 Dose: 1 amp Famotidine (Pepcid) 20 mg IVP BID [facility] Last Admin: 05/25/19 08:16 Dose: 20 mg Hydromorphone HCl (Dilaudid Inj Syringe) 1 mg IVP Q3H PRN PRN Reason: PAIN Last Admin: 05/25/19 02:42 Dose: 1 mg Sodium Chloride (Normal Saline 0.9%) 1,000 mls @ 150 mls/hr IV .Q6H40M [facility] Last Admin: 05/25/19 14:48 Dose: 150 mls/hr Potassium Chloride (Potassium Chloride) 10 meq in 100 mls @ 100 mls/hr IV Q1H [facility] Stop: 05/25/19 21:59 Insulin Aspart (Novolog) 1 - 5 unit SUBQ 0800,1200,1700,2100 [facility]; Protocol Last Admin: 05/25/19 12:34 Dose: Not Given Lorazepam (Ativan) 0.5 mg PO Q6H PRN PRN Reason: Anxiety Last Admin: 05/25/19 09:38 Dose: 0.5 mg Olanzapine (Zyprexa Odt) 5 mg TL DAILY PRN PRN Reason: Agitation Last Admin: 05/25/19 09:38 Dose: 5 mg Ondansetron HCl (Zofran Inj) 4 mg IVP Q6HR PRN PRN Reason: Nausea / Vomiting Sodium Chloride (Normal Saline Flush 0.9%) 10 ml IVP 0100,0900,1700 [facility] Last Admin: 05/25/19 08:17 Dose: 10 ml Sodium Chloride (Normal Saline Flush 0.9%) 10 ml IVP PRN PRN PRN Reason: NEEDED PER PROVIDER ORDERS Last Admin: 05/24/19 08:45 Dose: 10 ml Sterile Water (Sterile Water) 2.1 ml MC DAILY ELOISE Last Admin: 05/25/19 10:04 Dose: Not Given Metformin HCl 1,000 mg PO BID 05/23/19 Metoprolol Tartrate [Lopressor] 50 mg PO BID 05/23/19 Tamsulosin [Flomax] 0.8 mg PO DAILY 05/23/19 Objective - Vital Signs/Intake & Output Reviewed Vital Signs: Yes Vital Signs: Vital Signs x48h Temp Pulse Resp BP Pulse Ox 05/25/19 10:45 36.7 C 87 22 138/83 H 97 05/25/19 08:00 36.8 C 105 H 20 133/84 H 98 Intake & Output: Intake & Output 05/22/19 05/23/19 05/24/19 05/25/19 23:59 23:59 23:59 23:59 Intake Total 1000 3500 4379.999 3290 Output Total 1220 2235 875 Balance 1000 2280 2144.999 2415 - Objective General Appearance: positive: Alert Eyes Bilateral: positive: PERRL ENT: positive: Pharynx nml Neck: positive: No JVD. negative: Stiff neck Respiratory: positive: Chest non-tender. negative: Wheezes, Rales, Rhonchi Cardiovascular: positive: Regular rate & rhythm. negative: Gallop/S4, Friction rub Abdomen: positive: Non-tender, No organomegaly, Nml bowel sounds, No distention Skin: positive: Warm, Dry Neurologic/Psychiatric: positive: Oriented x3, CN's nml (2-12), Motor nml, Weakness - Lab Results Fish Bones: 05/25/19 04:48 05/25/19 04:48 Other Labs: Lab Results x24hrs 05/25/19 05/25/19 05/25/19 Range/Units 12:03 08:04 04:48 WBC (4.8-10.8) x10^3/uL RBC (4.70-6.10) 10^6/uL Hgb (14.0-18.0) g/dL Hct (42.0-52.0) % MCV (80.0-94.0) fL MCH (27.0-31.0) pg MCHC (32.0-36.0) g/dL RDW (12.0-15.0) % Plt Count (130-450) 10^3/uL MPV (7.4-11.4) fL Neut # (Auto) (1.5-6.6) 10^3/uL Lymph # (Auto) (1.5-3.5) 10^3/uL [place] # (Auto) (0.0-1.0) 10^3/uL Eos # (Auto) (0.0-0.7) 10^3/uL Baso # (Auto) (0.0-0.1) 10^3/uL Absolute Nucleated RBC x10^3/uL Nucleated RBC % /100WBC VBG pH 7.415 H (7.31-7.41) Ionized Calcium 1.08 L (1.15-1.33) mmol/L Sodium (135-145) mmol/L Potassium (3.5-5.0) mmol/L Chloride (101-111) mmol/L Carbon Dioxide (21-32) mmol/L Anion Gap (6-13) BUN (6-20) mg/dL Creatinine (0.6-1.2) mg/dL Estimated GFR (MDRD) (>89) Glucose (70-100) mg/dL POC Whole Bld Glucose 101 H 82 (70 - 100) mg/dL Calcium (8.5-10.3) mg/dL Phosphorus (2.5-4.6) mg/dL Magnesium (1.7-2.8) mg/dL Total Bilirubin (0.2-1.0) mg/dL AST (10-42) IU/L ALT (10-60) IU/L Alkaline Phosphatase (42-121) IU/L Total Creatine Kinase (22-269) IU/L Total Protein (6.7-8.2) g/dL Albumin (3.2-5.5) g/dL Globulin (2.1-4.2) g/dL Albumin/Globulin Ratio (1.0-2.2) 05/25/19 05/25/19 05/23/19 Range/Units 04:48 04:48 23:30 WBC 8.9 (4.8-10.8) x10^3/uL RBC 4.17 L (4.70-6.10) 10^6/uL Hgb 11.5 L (14.0-18.0) g/dL Hct 35.6 L (42.0-52.0) % MCV 85.4 (80.0-94.0) fL MCH 27.6 (27.0-31.0) pg MCHC 32.3 (32.0-36.0) g/dL RDW 14.5 (12.0-15.0) % Plt Count 133 (130-450) 10^3/uL MPV 10.4 (7.4-11.4) fL Neut # (Auto) 6.2 (1.5-6.6) 10^3/uL Lymph # (Auto) 1.6 (1.5-3.5) 10^3/uL [place] # (Auto) 0.8 (0.0-1.0) 10^3/uL Eos # (Auto) 0.2 (0.0-0.7) 10^3/uL Baso # (Auto) 0.0 (0.0-0.1) 10^3/uL Absolute Nucleated RBC 0.00 x10^3/uL Nucleated RBC % 0.0 /100WBC VBG pH (7.31-7.41) Ionized Calcium (1.15-1.33) mmol/L Sodium 139 (135-145) mmol/L Potassium 3.0 L (3.5-5.0) mmol/L Chloride 112 H (101-111) mmol/L Carbon Dioxide 20 L (21-32) mmol/L Anion Gap 7.0 (6-13) BUN 12 (6-20) mg/dL Creatinine 0.9 (0.6-1.2) mg/dL Estimated GFR (MDRD) 86 L (>89) Glucose 102 H (70-100) mg/dL POC Whole Bld Glucose 88 (70 - 100) mg/dL Calcium 7.9 L (8.5-10.3) mg/dL Phosphorus 3.3 (2.5-4.6) mg/dL Magnesium 1.5 L (1.7-2.8) mg/dL Total Bilirubin 1.0 (0.2-1.0) mg/dL AST 98 H (10-42) IU/L ALT 50 (10-60) IU/L Alkaline Phosphatase 59 (42-121) IU/L Total Creatine Kinase 1624 H* (22-269) IU/L Total Protein 6.4 L (6.7-8.2) g/dL Albumin 2.9 L (3.2-5.5) g/dL Globulin 3.5 (2.1-4.2) g/dL Albumin/Globulin Ratio 0.8 L (1.0-2.2) Assessment/Plan - Problem List (1) Rhabdomyolysis Impression: When he was first admitted he was very restless. Not communicating. He received Demerol for pain and became sedated. With his continued movement, agitation, CPK candelaria. It is now falling. Renal function has been normal. From a medical perspective, he is on the downhill slide and is felt to be medically cleared from rhabdo. CPK 105>3030 >4329 >1624 today Transfer from ICU to Med Surg (2) Motor restlessness resolved Assessment/Plan: The suspicion is that this was due to methamphetamine excess. He also had a paradoxic response to Valium, Ativan and Haldol; he became more a gitated and restless after all of these. He was changed to Zyprexa 10 mg daily IM. This morning he is not hallucinating. He is stable. We will switch Zyprexa to p.o. if he continues to hallucinate but he seems to have resolved with his altered mental status. (3) Dehydration resolved Assessment/Plan: Continued with IV hydration until he was able to take p.o. diet. Change to regular diet. Follow CMP daily. (4) Hypokalemia Assessment/Plan: Replace again. He is 3.0 this morning. Follow BMP. (5) Methamphetamine abuse Assessment/Plan: As above (6) Psychiatric symptoms Assessment/Plan: The details of this are not known but his had told the emergency room doctor that he was on Zyprexa and stopped taking it 2 months ago. Zyprexa resumed. (7) IVDU (intravenous drug user) Assessment/Plan: As per old discharge summary records from [facility]. (8) Skin sore Assessment/Plan: The appearance is that he has been picking at multiple papule-like lesions all over his body. This is very likely from his meth use. (9) Abnormal EKG Assessment/Plan: The admission EKG, done due to tachycardia, was only possible to be done 3/2 because of his restlessness until able to be sedated enough. The EKG shows early R/S transition, suggestive of Cor Pulmonale. His Hx does not state cigarette use. He is not awake enough to provide any other Hx (such as smoking other substances). He is not desaturating or appear in respiratory distress. Echo to screen for R heart disease.Preliminary report shows left ventricular si ze normal. Left ventricular wall thickness normal. Ejection fraction 70 to 75%. No regional wall motion abnormalities. Bilateral atrial indexes are normal. No valvular heart disease. Right ventricular systolic pressure at rest is 29 mmHg Qualifiers: Qualified Code(s): M62.82 - Rhabdomyolysis
[2019-05-25] MEDS ORDERED: POTASSIUM CHLOR 10 MEQ/100 ML 10 MEQ/100 ML BAG IV SCH (16:00)
[2019-05-25] MEDS: POTASSIUM CHLOR 10 MEQ/100 ML 10 MEQ/100 ML BAG IV SCH ×4 (16:49→20:17)
[2019-05-25] MEDS ORDERED: NICOTINE 14 MG PATCH TOP SCH (23:00)
[2019-05-26] MEDS: LORazepam 0.5 MG TABLET PO PRN (00:25)
[2019-05-26] MEDS: SODIUM CHLORIDE 0.9% 1,000 ML IV SCH ×2 (04:15→10:10)
[2019-05-26] MEDS: HYDROmorphone 1 MG/ML SYRINGE IVP PRN (04:32)
[2019-05-26 05:21] LABS: BASOPHILS % (AUTO) 0.4 %; EOSINOPHILS # (AUTO) 0.2 10^3/uL (0.0-0.7); EOSINOPHILS % (AUTO) 2.8 %; HGB - HEMOGLOBIN 10.8 g/dL (14.0-18.0); LYMPHOCYTES # (AUTO) 1.3 10^3/uL (1.5-3.5); LYMPHOCYTES % (AUTO) 18.3 %; MEAN CORPUSCULAR HEMOGLOBIN 27.3 pg (27.0-31.0); MEAN CORPUSCULAR HGB CONC 32.4 g/dL (32.0-36.0); MEAN CORPUSCULAR VOLUME 84.1 fL (80.0-94.0); MONOCYTES # (AUTO) 0.6 10^3/uL (0.0-1.0); MONOCYTES % (AUTO) 8.5 %; NEUTROPHILS # (AUTO) 5.1 10^3/uL (1.5-6.6); NEUTROPHILS % (AUTO) 69.4 %; PLT - PLATELET COUNT 132 10^3/uL (130-450); RED BLOOD COUNT 3.96 10^6/uL (4.70-6.10); WHITE BLOOD COUNT 7.3 x10^3/uL (4.8-10.8)
[2019-05-26 05:26] LABS: VBG PH 7.427 (7.31-7.41)
[2019-05-26 05:36] LABS: ALBUMIN/GLOBULIN RATIO 0.9 (1.0-2.2); BILIRUBIN,TOTAL 0.5 mg/dL (0.2-1.0); CALCIUM 7.9 mg/dL (8.5-10.3); CREATININE 0.9 mg/dL (0.6-1.2); MAGNESIUM 1.6 mg/dL (1.7-2.8); PHOSPHORUS 3.6 mg/dL (2.5-4.6); TOTAL PROTEIN 6.4 g/dL (6.7-8.2)
[2019-05-26 07:22] VITALS: BP 113/66
[2019-05-26] MEDS: INSULIN ASPART 300 UNIT/3 ML PEN SUBQ SCH (08:18)
[2019-05-26] MEDS: SODIUM CHLORIDE FLUSH 0.9% 10 ML SYRINGE IVP SCH (08:18)
[2019-05-26] MEDS: SODIUM CHLORIDE FLUSH 0.9% 10 ML SYRINGE IVP PRN (08:31)
[2019-05-26] MEDS: FAMOTIDINE 20 MG/2 ML VIAL IVP SCH (08:32)
[2019-05-26] MEDS: ethyl alcohoL 62% SWAB AMPULE NAS SCH (08:32)
--- NOTE | 2019-05-26 08:47 | Discharge Plan ---
Discharge Plan Problem Reviewed?: Yes Disposition: Home, Self Care Condition: Good Diet: Regular Activity Restrictions: Activity as Tolerated Shower Restrictions: No Driving Restrictions: No Instruction Topics: Abuse Meth Abuse and Addiction Health Concerns: You came to the hospital because your was really worried about your auditory hallucinations, restlessness and recent use of med amphetamines. You would also stop using your Zyprexa, which is a mental health medication, 2 months ago. We had to wait a long time for you to calm down in the emergency room enough to do a CAT scan of your head. We gave you many medicines to calm you down including Ativan, Zyprexa, Valium and finally ketamine. Your CAT scan was negative. But you were still very confused, alternating between sleepiness and agitation, and had muscle breakdown. Plan of Treatment: 1. We gave you quite a bit of fluids into your veins to hydrate you and prevent kidney damage from the muscle damage. 2. We waited you to finally come to yourself. We had a one-to-one supervision of you to make sure you did not hurt yourself. 3. Because you had an abnormal EKG suggesting that you may have high blood pressure of the lungs we did an ultrasound of your heart called an echocardiogram. Your echocardiogram is normal and you do not have high blood pressure of the lungs. 4. We did try and speak to your to update her on your condition. But she was not herself. Very angry that we called her and we were not able to update her while you were here. She asked us not to call her again. I hope that this did not inconvenience you or her. Care Goals: 1. Please stop using methamphetamines 2. Please resume your mental health medications. They are very important. And the use of med amphetamines destabilize you tremendously 3. Please stop smoking. 4. Please see your primary care provider in the next 1 to 2 weeks for follow- up. 5. Do not take your metformin for the next week. Your glucose while in the hospital was stable. And as you go home, I would like you to resume a regular diet for yourself before you start metformin. Assessment: Patient understands plan, care goals and promises to follow through No Smoking: If you smoke, Please STOP! Call for help. Follow-up with: Bailee Kaplan MD [Physician No Access] -
[2019-05-26] MEDS ORDERED: polyethylene glycoL 3350 17 GM PACKET PO SCH (09:00)
[2019-05-26] MEDS: OLANZapine ODT 5 MG TABLET TL PRN (10:21)
--- NOTE | 2019-05-26 16:04 | DISCHARGE SUMMARY ---
Discharge Summary Admit Date: 05/23/19 Discharge Date: 05/26/19 Discharging Provider: Maia Bae Primary Care Provider: Bailee Kaplan MD Code Status: Attempt Resuscitation Condition at Discharge: Good Discharge Disposition: 01 Home, Self Care - DIAGNOSES Discharge Diagnoses with Status of Each Condition: 1. Rhabdomyolysis 2. Motor restlessness 3. Dehydration 4. Hypokalemia 5. Methamphetamine abuse 6. Psychiatric symptoms 7. IV drug user 8. Skin sores 9. Abnormal EKG - HPI History of Present Illness: 63-year-old white male with a history of psychiatric disorder, unknown diagnosis, also has a history of IV drug abuse with heroin and is a current methamphetamine user that presents with auditory hallucinations and "not feeling right". He is unable to provide a history. History is provided by the to the ER provider. He is usually on Zyprexa but has not taken it for 2 months because he ran out. He says is difficult for him to go see his primary care provider [facility] the [facility]. In the emergency room he was confused, having active hallucinations, and drug screen was positive for met amphetamines and amphetamines. The ER management included waiting for the effects of med amphetamines to dissipate in order to discharge him or to have a psych evaluation. He continued to be restless for over a 12-hour.. They decided to do a CT of the head but he was so restless and agitated that he required Zyprexa, Ativan, Valium and eventually ketamine to sedate him enough to do the CT. CT was negative. Following the ketamine he became obtunded. Repeat blood tests were done and showed a new elevation of CK from 105 the previous evening to now 3030, 22 hours later. He was admitted to manage his rhabdomyolysis, obtundation from sedatives with akathisia related to methamphetamine use. - HOSPITAL COURSE Hospital Course: Initially he was placed in the ICU for one-to-one observation because of his agitation. He required the use of Zyprexa, and we hydrated him for the elevated CPK. BUN and creatinine remained stable. He was hypokalemic and required multiple doses of supplementation. His diabetes was managed by stopping his metformin and starting him on sliding scale insulin. Within 48 hours he was back to his baseline mental status. He was alert, oriented. Stated that he must of "bought a bad batch" of methamphetamines from his friend. This was the first time he ever got psychotic with medications. He was very weak. Required another 24 hours of being able to be prompted to walk, eat food. On the day of discharge he was finally able to do laps around [place] able to go home safely. He asked us to fill his medications with regards to Xanax 1 mg 3 times daily and Zyprexa since he has run out. He was continued on his Flomax, Lopressor and not the metformin. I have asked him to wait another week before he resumes metf ormin. I have also asked him not to use any more Methamphetamines or to smoke. He is discharged in stable condition with a temperature of 37.1, pulse 78, respirations 18. Blood pressure was 113/66. He was 96% on room air. A pleasant 5 foot 7 inch white male who weight 82 kg. Partially edentulous. Disheveled. Shotty anterior cervical neck adenopathy. Lungs clear to auscultation and percussion. PMI normally placed with a regular rate and rhythm and no murmurs. Because of an abnormal EKG an echocardiogram was done and was normal. Normal ejection fraction, normal valves, no pulmonary hypertension. Abdomen was benign. Extremities had no edema. Skin was remarkable for multiple sores that were in various stages of recovery on his forearms, legs, shins and wherever he could reach his body with his hands. His motor restlessness was gone. No more auditory hallucinations. He is asked to see his primary care provider in follow-up in the next 1 to 2 weeks. Continue to seek rehab for his met amphetamine and tobacco addictions.Greater than 30 minutes was spent coordinating discharge. - ALLERGIES Allergies/Adverse Reactions: Allergies Allergy/AdvReac Type Severity Reaction Status Date / Time baclofen Allergy Hives Verified 05/22/19 17:38 ketorolac [From Toradol] Allergy Hives Verified 05/22/19 17:38 - MEDICATIONS Home Medications: Ambulatory Orders Medication Instructions Recorded Confirmed Metformin HCl 1,000 mg PO BID 05/23/19 05/23/19 Metoprolol Tartrate [Lopressor] 50 mg PO BID 05/23/19 05/23/19 Tamsulosin [Flomax] 0.8 mg PO DAILY 05/23/19 05/23/19 Alprazolam [Xanax] 1 mg PO TID #18 tablet 05/26/19 OLANZapine ODT [Zyprexa Odt] 5 mg TL DAILY #30 tablet 05/26/19 - LABS Result Diagrams: 05/26/19 05:00 05/26/19 05:00
== END 2019-05-26 11:17 | disposition home or self-care (01) | DRG 918 ==
LOC: EDUNIT# → ED 17:24 → ICU 05-23 15:47 → MS2 05-25 09:59
PROVIDERS: ADMIT Internal Medicine; ATTEND Specialist
DX: T43.621A Poisoning by amphetamines, accidental (unintentional), initial encounter (principal); M62.82 Rhabdomyolysis; F15.151 Other stimulant abuse with stimulant-induced psychotic disorder with hallucinations; G25.71 Drug induced akathisia; R53.83 Other fatigue; T43.595A Adverse effect of other antipsychotics and neuroleptics, initial encounter; T42.4X5A Adverse effect of benzodiazepines, initial encounter; T41.295A Adverse effect of other general anesthetics, initial encounter; Y92.239 Unspecified place in hospital as the place of occurrence of the external cause; E86.0 Dehydration; E87.6 Hypokalemia; E11.9 Type 2 diabetes mellitus without complications; R94.31 Abnormal electrocardiogram [ECG] [EKG]; R00.0 Tachycardia, unspecified; F11.10 Opioid abuse, uncomplicated; F17.200 Nicotine dependence, unspecified, uncomplicated; R79.89 Other specified abnormal findings of blood chemistry; L98.9 Disorder of the skin and subcutaneous tissue, unspecified; T43.596A Underdosing of other antipsychotics and neuroleptics, initial encounter; Z91.138 Patient's unintentional underdosing of medication regimen for other reason; Z79.84 Long term (current) use of oral hypoglycemic drugs; Z98.1 Arthrodesis status; I25.2 Old myocardial infarction
CPT/HCPCS: 36415; 70450; 71045; 80053; 80306; 80307; 80320; 80329; 81003; 82330; 82550; 82803; 83036; 83690; 83735; 84100; 84443; 85025; 85610; 87150; 93005; 93306; 96361; 96372; 96374; 96375; 96376; 99283; 99285; A9270; J1170; J1200; J2060; J7040; 81001; 87086

== ENCOUNTER 2019-07-28 21:07 | Emergency (ER) | payer MEDICAID | END 2019-07-28 21:25 | disposition left against medical advice (07) | LOC: ED 21:07 | DX: Z53.21 Procedure and treatment not carried out due to patient leaving prior to being seen by health care provider (principal) ==

== ENCOUNTER 2019-08-06 14:05 | Outpatient (CLI) | payer MEDICAID | END 2019-08-06 14:06 | disposition critical access hospital (66) | LOC: EMS 14:05 | PROVIDERS: ATTEND Surgery | DX: R41.82 Altered mental status, unspecified (principal); R44.0 Auditory hallucinations | CPT/HCPCS: A0425; A0429; A0999 ==

== ENCOUNTER 2019-08-06 14:43 | Emergency (ER) | payer MEDICAID ==
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
[2019-08-06 16:00] LABS: MUDS CUTOFF CONCENTRATIONS CUTOFF CONC BELOW:
[2019-08-06 16:06] LABS: BASOPHILS % (AUTO) 0.7 %; EOSINOPHILS # (AUTO) 0.1 10^3/uL (0.0-0.7); EOSINOPHILS % (AUTO) 3.2 %; HGB - HEMOGLOBIN 12.2 g/dL (14.0-18.0); MEAN CORPUSCULAR HEMOGLOBIN 26.5 pg (27.0-31.0); MEAN CORPUSCULAR HGB CONC 31.5 g/dL (32.0-36.0); MEAN CORPUSCULAR VOLUME 84.1 fL (80.0-94.0); MEAN PLATELET VOLUME 9.8 fL (7.4-11.4); MONOCYTES # (AUTO) 0.4 10^3/uL (0.0-1.0); MONOCYTES % (AUTO) 10.1 %; NEUTROPHILS # (AUTO) 2.7 10^3/uL (1.5-6.6); NEUTROPHILS % (AUTO) 61.5 %; PLT - PLATELET COUNT 137 10^3/uL (130-450); RED CELL DISTRIBUTION WIDTH 15.3 % (12.0-15.0); WHITE BLOOD COUNT 4.3 x10^3/uL (4.8-10.8)
[2019-08-06 16:18] LABS: ACETAMINOPHEN < 10 ug/mL (10-30); ALBUMIN 3.6 g/dL (3.2-5.5); ALBUMIN/GLOBULIN RATIO 0.9 (1.0-2.2); ALKALINE PHOSPHATASE 123 IU/L (42-121); ALT ALANINE AMINOTRANSFERASE 50 IU/L (10-60); AST ASPARTATE AMINOTRANSFERASE 56 IU/L (10-42); BILIRUBIN,TOTAL 0.7 mg/dL (0.2-1.0); BUN - BLOOD UREA NITROGEN 13 mg/dL (6-20); CALCIUM 8.3 mg/dL (8.5-10.3); CARBON DIOXIDE - CO2 25 mmol/L (21-32); CHLORIDE 104 mmol/L (101-111); GLUCOSE 112 mg/dL (70-100); LIPASE 29 U/L (22-51); SALICYLATE < 6.0 mg/dL; SODIUM 137 mmol/L (135-145); TOTAL PROTEIN 7.6 g/dL (6.7-8.2)
[2019-08-06 16:22] LABS: AMPHETAMINE SCREEN,URINE POSITIVE (NEGATIVE); BENZODIAZEPINES SCREEN, URINE NEGATIVE (NEGATIVE); COCAINE SCREEN URINE NEGATIVE (NEGATIVE); METHADONE SCREEN, URINE NEGATIVE (NEGATIVE); METHAMPHETAMINES SCREEN, URINE POSITIVE (NEGATIVE); OPIATE SCREEN, URINE POSITIVE (NEGATIVE); OXYCODONE SCREEN, URINE NEGATIVE (NEGATIVE); PROPOXYPHENE SCREEN, URINE NEGATIVE (NEGATIVE); TRICYCLIC ANTIDEPRESSANT,URINE NEGATIVE (NEGATIVE)
[2019-08-06 20:42] VITALS: BP 127/81
== END 2019-08-06 20:45 | disposition home or self-care (01) ==
LOC: EDUNIT# → ED 14:43
DX: F15.150 Other stimulant abuse with stimulant-induced psychotic disorder with delusions (principal); I49.1 Atrial premature depolarization; E11.9 Type 2 diabetes mellitus without complications; Z79.84 Long term (current) use of oral hypoglycemic drugs; F17.200 Nicotine dependence, unspecified, uncomplicated
CPT/HCPCS: 36415; 80053; 80306; 80307; 80320; 80329; 83690; 84443; 85025; 93005; 99281; 99283

== ENCOUNTER 2019-08-10 07:09 | Outpatient (CLI) | payer MEDICAID | END 2019-08-10 07:10 | disposition critical access hospital (66) | LOC: EMS 07:09 | PROVIDERS: ATTEND Surgery | DX: R46.89 Other symptoms and signs involving appearance and behavior (principal) | CPT/HCPCS: A0425; A0429; A0999 ==

== ENCOUNTER 2019-08-10 07:38 | Emergency (ER) | payer MEDICAID ==
[2019-08-10] MEDS ORDERED: OLANZapine ODT 5 MG TABLET TL ONE (08:02)
[2019-08-10] MEDS ORDERED: ACETAMINOPHEN 325 MG TABLET PO STA (08:02)
[2019-08-10] MEDS ORDERED: HYDROcod/ACETAM 5/325 MG TABLET PO STA (08:02)
[2019-08-10] MEDS ORDERED: NAPROXEN 250 MG TABLET PO STA (08:02)
[2019-08-10] MEDS ORDERED: DOXYCYCLINE 100 MG TABLET PO STA (08:05)
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
[2019-08-10 08:38] LABS: BASOPHILS % (AUTO) 0.5 %; EOSINOPHILS # (AUTO) 0.1 10^3/uL (0.0-0.7); EOSINOPHILS % (AUTO) 1.5 %; HGB - HEMOGLOBIN 13.3 g/dL (14.0-18.0); LYMPHOCYTES # (AUTO) 0.6 10^3/uL (1.5-3.5); LYMPHOCYTES % (AUTO) 10.5 %; MEAN CORPUSCULAR HEMOGLOBIN 25.4 pg (27.0-31.0); MEAN PLATELET VOLUME 9.7 fL (7.4-11.4); MONOCYTES # (AUTO) 0.6 10^3/uL (0.0-1.0); NEUTROPHILS # (AUTO) 4.7 10^3/uL (1.5-6.6); PLT - PLATELET COUNT 130 10^3/uL (130-450); RED BLOOD COUNT 5.23 10^6/uL (4.70-6.10); RED CELL DISTRIBUTION WIDTH 15.7 % (12.0-15.0); WHITE BLOOD COUNT 6.1 x10^3/uL (4.8-10.8)
[2019-08-10 08:53] LABS: ACETAMINOPHEN < 10 ug/mL (10-30); ALBUMIN 4.1 g/dL (3.2-5.5); ALBUMIN/GLOBULIN RATIO 0.9 (1.0-2.2); ALKALINE PHOSPHATASE 107 IU/L (42-121); ALT ALANINE AMINOTRANSFERASE 55 IU/L (10-60); AST ASPARTATE AMINOTRANSFERASE 75 IU/L (10-42); BILIRUBIN,TOTAL 0.7 mg/dL (0.2-1.0); BUN - BLOOD UREA NITROGEN 17 mg/dL (6-20); CALCIUM 9.3 mg/dL (8.5-10.3); CARBON DIOXIDE - CO2 25 mmol/L (21-32); CHLORIDE 103 mmol/L (101-111); GLUCOSE 100 mg/dL (70-100); LIPASE 31 U/L (22-51); SALICYLATE < 6.0 mg/dL; SODIUM 140 mmol/L (135-145); TOTAL PROTEIN 8.6 g/dL (6.7-8.2)
--- NOTE | 2019-08-10 08:57 | XRAY Report ---
Reason: neck pain Procedure Date: 08/10/2019 Accession Number: [id number] / [id number] Procedure: XR - Cervical Spine 2 View CPT Code: Final Report FULL RESULT: EXAM: CERVICAL SPINE RADIOGRAPHY EXAM DATE: 08/10/2019 08:18 AM. CLINICAL HISTORY: Neck pain. "Patient believes there is a foreign body in his neck." COMPARISONS: XR CERVICAL SPINE 2 OR 3 VIEWS 12/05/2008 3:44 PM. TECHNIQUE: 3 views. FINDINGS: Alignment: Normal. No spondylolisthesis or scoliosis. Bones: The cervical vertebral bodies and posterior elements are well visualized from the skull base through C6. C5, C6 and C7 vertebral body fixation screws with anterior fixation plate. Bilateral C5 and bilateral C6 lateral mass of fixation screws with posterior fixation hardware. Disks: Probable interbody fusion C2-C3. Moderate disk degeneration C3-C4. Preservation of disk height C4-C5. Facets: Facet joint ankylosis C2-C3. Severe C4-C5 facet hypertrophic arthropathy. Possible ankylosis C3-C4 facet joints. Soft Tissues: Normal. No prevertebral soft tissue swelling. Patchy infiltrate or interstitial lung disease lung apices bilaterally. IMPRESSION: 1. Patchy infiltrate or interstitial lung disease lung apices bilaterally. Likely new since 05/23/2019. Correlate with chest radiograph. 2. Severe facet hypertrophic arthropathy C4-C5. 3. C5, C6 and C7 vertebral body fixation screws with anterior fixation plate in the interbody osseous fusion from bone graft. 4. Bilateral C5-C6 lateral mass fixation screws and posterior fixation hardware. 5. The cervical vertebral bodies and posterior elements are visualized from the skull base through C6. 6. Probable interbody fusion and facet joint ankylosis C2-C4. RADIA
[2019-08-10 09:33] LABS: MUDS CUTOFF CONCENTRATIONS CUTOFF CONC BELOW:
[2019-08-10 09:39] LABS: BILIRUBIN,URINE NEGATIVE (NEGATIVE); GLUCOSE, URINE (UA) NEGATIVE (NEGATIVE); KETONES,URINE (UA) NEGATIVE (NEGATIVE); LEUKOCYTE ESTERASE, URINE NEGATIVE (NEGATIVE); NITRITE,URINE NEGATIVE (NEGATIVE); OCCULT BLOOD,URINE NEGATIVE (NEGATIVE); PROTEIN,URINE NEGATIVE (NEGATIVE); UROBILINOGEN,URINE >=8.0 E.U./dL (NORMAL)
[2019-08-10 09:45] LABS: CLARITY,URINE CLEAR (CLEAR)
[2019-08-10 09:54] LABS: COCAINE SCREEN URINE NEGATIVE (NEGATIVE); METHAMPHETAMINES SCREEN, URINE NEGATIVE (NEGATIVE)
[2019-08-10 09:55] LABS: AMPHETAMINE SCREEN,URINE POSITIVE (NEGATIVE); BENZODIAZEPINES SCREEN, URINE NEGATIVE (NEGATIVE); METHADONE SCREEN, URINE NEGATIVE (NEGATIVE); OPIATE SCREEN, URINE NEGATIVE (NEGATIVE); OXYCODONE SCREEN, URINE POSITIVE (NEGATIVE); PROPOXYPHENE SCREEN, URINE NEGATIVE (NEGATIVE); TRICYCLIC ANTIDEPRESSANT,URINE NEGATIVE (NEGATIVE)
[2019-08-10 17:43] VITALS: BP 135/85
== END 2019-08-10 21:05 ==
LOC: EDUNIT# → ED 07:38
DX: F23 Brief psychotic disorder (principal); F22 Delusional disorders; F15.10 Other stimulant abuse, uncomplicated; E11.9 Type 2 diabetes mellitus without complications; F17.200 Nicotine dependence, unspecified, uncomplicated; Z79.84 Long term (current) use of oral hypoglycemic drugs
CPT/HCPCS: 36415; 72040; 80053; 80306; 80307; 80320; 80329; 81003; 83690; 84443; 85025; 93005; 99283; 99285; A9270; 81001; 87086

== ENCOUNTER 2020-03-25 13:51 | Emergency (ER) | payer MEDICAID ==
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
[2020-03-25] MEDS ORDERED: IBUPROFEN 600 MG TABLET PO STA (14:36)
[2020-03-25] MEDS ORDERED: DOXYCYCLINE 100 MG TABLET PO STA (14:36)
[2020-03-25] MEDS ORDERED: CETIRIZINE 10 MG TABLET PO STA (14:36)
[2020-03-25 14:48] LABS: BASOPHILS % (AUTO) 0.5 %; EOSINOPHILS # (AUTO) 0.2 10^3/uL (0.0-0.7); EOSINOPHILS % (AUTO) 2.3 %; HGB - HEMOGLOBIN 13.4 g/dL (14.0-18.0); LYMPHOCYTES # (AUTO) 1.4 10^3/uL (1.5-3.5); LYMPHOCYTES % (AUTO) 19.3 %; MEAN CORPUSCULAR HEMOGLOBIN 27.2 pg (27.0-31.0); MEAN CORPUSCULAR HGB CONC 31.8 g/dL (32.0-36.0); MEAN CORPUSCULAR VOLUME 85.6 fL (80.0-94.0); MEAN PLATELET VOLUME 9.6 fL (7.4-11.4); MONOCYTES # (AUTO) 0.7 10^3/uL (0.0-1.0); MONOCYTES % (AUTO) 8.7 %; NEUTROPHILS # (AUTO) 5.2 10^3/uL (1.5-6.6); NEUTROPHILS % (AUTO) 68.8 %; PLT - PLATELET COUNT 168 10^3/uL (130-450); RED BLOOD COUNT 4.93 10^6/uL (4.70-6.10); RED CELL DISTRIBUTION WIDTH 14.5 % (12.0-15.0); WHITE BLOOD COUNT 7.5 x10^3/uL (4.8-10.8)
[2020-03-25 15:05] LABS: ACETAMINOPHEN < 10 ug/mL (10-30); ALBUMIN 4.4 g/dL (3.2-5.5); ALKALINE PHOSPHATASE 94 IU/L (42-121); ALT ALANINE AMINOTRANSFERASE 54 IU/L (10-60); AST ASPARTATE AMINOTRANSFERASE 65 IU/L (10-42); BILIRUBIN,TOTAL 0.9 mg/dL (0.2-1.0); BUN - BLOOD UREA NITROGEN 26 mg/dL (6-20); CALCIUM 9.4 mg/dL (8.5-10.3); CARBON DIOXIDE - CO2 24 mmol/L (21-32); CHLORIDE 100 mmol/L (101-111); CREATININE 0.9 mg/dL (0.6-1.2); GLUCOSE 110 mg/dL (70-100); LIPASE 28 U/L (22-51); SALICYLATE < 6.0 mg/dL; SODIUM 137 mmol/L (135-145); TOTAL PROTEIN 8.7 g/dL (6.7-8.2)
[2020-03-25 15:18] LABS: MUDS CUTOFF CONCENTRATIONS CUTOFF CONC BELOW:
[2020-03-25 15:22] LABS: BILIRUBIN,URINE NEGATIVE (NEGATIVE); GLUCOSE, URINE (UA) NEGATIVE (NEGATIVE); KETONES,URINE (UA) NEGATIVE (NEGATIVE); LEUKOCYTE ESTERASE, URINE NEGATIVE (NEGATIVE); NITRITE,URINE NEGATIVE (NEGATIVE); OCCULT BLOOD,URINE NEGATIVE (NEGATIVE); PH,URINE 5.5 PH (5.0-7.5); PROTEIN,URINE NEGATIVE (NEGATIVE); UROBILINOGEN,URINE 0.2 (NORMAL) E.U./dL (NORMAL)
[2020-03-25 15:32] LABS: CLARITY,URINE CLEAR (CLEAR)
[2020-03-25 15:33] LABS: AMPHETAMINE SCREEN,URINE POSITIVE (NEGATIVE); BENZODIAZEPINES SCREEN, URINE NEGATIVE (NEGATIVE); COCAINE SCREEN URINE NEGATIVE (NEGATIVE); METHADONE SCREEN, URINE NEGATIVE (NEGATIVE); METHAMPHETAMINES SCREEN, URINE POSITIVE (NEGATIVE); OPIATE SCREEN, URINE POSITIVE (NEGATIVE); OXYCODONE SCREEN, URINE NEGATIVE (NEGATIVE); PROPOXYPHENE SCREEN, URINE NEGATIVE (NEGATIVE); TRICYCLIC ANTIDEPRESSANT,URINE NEGATIVE (NEGATIVE)
[2020-03-25 16:01] LABS: C. PNEUMONIAE- RESP PCR PANEL NOT DETECTED
[2020-03-25] MEDS ORDERED: haloperidoL 1 MG TABLET PO STA (16:01)
--- NOTE | 2020-03-25 18:15 | ED Physician Documentation ---
ED Addendum - Addendum Addendum: 03/25/20 18:[address] 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 Social work was consulted and they felt that he may be a grave disability from his drug use and therefore they dispatched to the DCR to see him. The DCR saw him and did not feel that there was any indication for involuntary fdc. Disposition discharged home Condition stable
[2020-03-25 23:44] VITALS: BP 134/89
== END 2020-03-25 23:44 | disposition home or self-care (01) ==
LOC: ED 13:51
DX: F15.150 Other stimulant abuse with stimulant-induced psychotic disorder with delusions (principal); L08.9 Local infection of the skin and subcutaneous tissue, unspecified; F42.4 Excoriation (skin-picking) disorder; F41.9 Anxiety disorder, unspecified; E11.9 Type 2 diabetes mellitus without complications; Z79.84 Long term (current) use of oral hypoglycemic drugs; F17.200 Nicotine dependence, unspecified, uncomplicated; Z20.822 Contact with and (suspected) exposure to COVID-19
CPT/HCPCS: 0202U; 36415; 80053; 80306; 80307; 80320; 80329; 81003; 83690; 84443; 85025; 99284; A9270; 81001; 87086

== ENCOUNTER 2021-09-10 23:16 | Emergency (ER) | payer MEDICAID ==
[2021-09-11] MEDS ORDERED: DEXAMETHASONE 10 MG/ML VIAL PO STA (00:40)
[2021-09-11] MEDS ORDERED: MELOXICAM 7.5 MG TABLET PO STA (00:40)
[2021-09-11] MEDS ORDERED: CHERRY SYRUP 10 ML UDC PO ONE (00:40)
--- NOTE | 2021-09-11 01:36 | CT Report ---
PROCEDURE: HEAD WO INDICATIONS: headinjury TECHNIQUE: Noncontrast 4.5 mm thick angled axial sections acquired from the foramen magnum to the vertex. For r adiation dose reduction, the following was used: automated exposure control, adjustment of mA and/or kV according to patient size. COMPARISON: 05/23/19. FINDINGS: Image quality: Excellent. CSF spaces: Basal cisterns are patent. No extra-axial fluid collections. Ventricles are normal in size and shape. Brain: No intracranial hemorrhage, mass, or mass effect. Hernández-white matter interface appears preser ryan. Skull and face: Calvarium and visualized facial bones are intact, without suspicious lesions. Sinuses: Visualized sinuses and mastoids are clear. IMPRESSION: 1. No acute intracranial abnormality. Reviewed by: Dustin Nuñez MD on 09/11/2021 1:35 AM PDT Approved by: Dustin Nuñez MD on 09/11/2021 1:35 AM PDT Station ID: [id number]
--- NOTE | 2021-09-11 01:42 | CT Report ---
PROCEDURE: CERVICAL SPINE WO INDICATIONS: neck contusion pain TECHNIQUE: Noncontrast 3 mm thick sections acquired from the skull base to the T4 level. Sagittal and coronal r eformats were then constructed. For radiation dose reduction, the following was used: automated exp osure control, adjustment of mA and/or kV according to patient size. COMPARISON: None. FINDINGS: Image quality: There is metallic streak artifact related to patient's surgical hardware. Bones: No fractures or subluxation. Mild anterolisthesis redemonstrated at C3-C4 and C4-C5. There is minimal anterolisthesis at C7-T1 and T1-T2. Postsurgical changes redemonstrated status post ACDF at C5-C7. There is moderate degenerative disc disease at C3-C4 and mild degenerative disc disease at C4- C5. Multilevel facet arthropathy demonstrated throughout cervical spine including fusion of the C2-C4 levels. Visualized superior ribs are intact. Soft tissues: Prevertebral soft tissues are normal in thickness. No paravertebral hematomas. No ap ical pneumothoraces. IMPRESSION: 1. No acute fracture or subluxation. 2. Postsurgical and degenerative changes of the cervical spine as described. Reviewed by: Dustin Nuñez MD on 09/11/2021 1:41 AM PDT Approved by: Dustin Nuñez MD on 09/11/2021 1:41 AM PDT Station ID: [id number]
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
[2021-09-11 01:57] VITALS: BP 154/114
== END 2021-09-11 02:07 | disposition home or self-care (01) ==
LOC: ED 23:16
DX: S10.93XA Contusion of unspecified part of neck, initial encounter (principal); S16.1XXA Strain of muscle, fascia and tendon at neck level, initial encounter; S06.0X0A Concussion without loss of consciousness, initial encounter; Y00.XXXA Assault by blunt object, initial encounter; F17.200 Nicotine dependence, unspecified, uncomplicated
CPT/HCPCS: 70450; 72125; 99284; A9270

== ENCOUNTER 2021-11-20 11:45 | Outpatient (CLI) | payer MEDICAID | END 2021-11-20 11:46 | disposition critical access hospital (66) | LOC: EMS 11:45 | DX: R11.2 Nausea with vomiting, unspecified (principal); R10.84 Generalized abdominal pain | CPT/HCPCS: A0425; A0429; A0999 ==

== ENCOUNTER 2021-11-20 12:03 | Emergency (ER) | payer MEDICAID ==
[2021-11-20 12:36] LABS: BASOPHILS % (AUTO) 0.4 %; EOSINOPHILS # (AUTO) 0.1 10^3/uL (0.0-0.7); EOSINOPHILS % (AUTO) 0.7 %; HGB - HEMOGLOBIN 14.6 g/dL (14.0-18.0); LYMPHOCYTES # (AUTO) 1.4 10^3/uL (1.5-3.5); LYMPHOCYTES % (AUTO) 20.2 %; MEAN CORPUSCULAR HEMOGLOBIN 28.3 pg (27.0-31.0); MEAN CORPUSCULAR VOLUME 83.5 fL (80.0-94.0); MEAN PLATELET VOLUME 10.4 fL (7.4-11.4); MONOCYTES # (AUTO) 0.6 10^3/uL (0.0-1.0); MONOCYTES % (AUTO) 8.5 %; NEUTROPHILS # (AUTO) 4.9 10^3/uL (1.5-6.6); NEUTROPHILS % (AUTO) 69.8 %; PLT - PLATELET COUNT 137 10^3/uL (130-450); RED BLOOD COUNT 5.15 10^6/uL (4.70-6.10); RED CELL DISTRIBUTION WIDTH 14.2 % (12.0-15.0)
[2021-11-20 12:44] LABS: INR 1.2 (0.8-1.2); PT - PROTHROMBIN TIME 13.2 secs (9.9-12.6)
[2021-11-20 12:51] LABS: ALBUMIN 4.6 g/dL (3.2-5.5); ALBUMIN/GLOBULIN RATIO 1.1 (1.0-2.2); ALKALINE PHOSPHATASE 61 IU/L (42-121); ALT ALANINE AMINOTRANSFERASE 35 IU/L (10-60); AST ASPARTATE AMINOTRANSFERASE 48 IU/L (10-42); BILIRUBIN,TOTAL 1.8 mg/dL (0.2-1.0); BUN - BLOOD UREA NITROGEN 22 mg/dL (6-20); CALCIUM 9.2 mg/dL (8.5-10.3); CARBON DIOXIDE - CO2 22 mmol/L (21-32); CHLORIDE 100 mmol/L (101-111); CREATININE 1.2 mg/dL (0.6-1.2); ETOH - ETHANOL < 5.0 mg/dL; GFR - MDRD 61 (>89); GLUCOSE 161 mg/dL (70-100); LIPASE 23 U/L (22-51); POTASSIUM 3.1 mmol/L (3.5-5.0); SODIUM 135 mmol/L (135-145); TOTAL PROTEIN 8.9 g/dL (6.7-8.2)
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
[2021-11-20 13:09] LABS: MUDS CUTOFF CONCENTRATIONS CUTOFF CONC BELOW:
[2021-11-20 13:13] LABS: GLUCOSE, URINE (UA) NEGATIVE (NEGATIVE); KETONES,URINE (UA) 40 mg/dL (NEGATIVE); LEUKOCYTE ESTERASE, URINE NEGATIVE (NEGATIVE); NITRITE,URINE NEGATIVE (NEGATIVE); OCCULT BLOOD,URINE NEGATIVE (NEGATIVE); PH,URINE 5.5 PH (5.0-7.5); PROTEIN,URINE 30 mg/dL (NEGATIVE); UROBILINOGEN,URINE 2 E.U./dL (NORMAL)
[2021-11-20 13:17] LABS: BILIRUBIN,URINE NEGATIVE (NEGATIVE); CLARITY,URINE CLEAR (CLEAR); ICTOTEST,URINE NEGATIVE
[2021-11-20 13:22] LABS: AMPHETAMINE SCREEN,URINE POSITIVE (NEGATIVE); COCAINE SCREEN URINE NEGATIVE (NEGATIVE); METHAMPHETAMINES SCREEN, URINE POSITIVE (NEGATIVE); OPIATE SCREEN, URINE POSITIVE (NEGATIVE); THC CANNABINOID SCREEN, URINE POSITIVE (NEGATIVE)
[2021-11-20 13:23] LABS: BARBITURATE SCREEN,UR NEGATIVE (NEGATIVE); BENZODIAZEPINES SCREEN, URINE NEGATIVE (NEGATIVE); METHADONE SCREEN, URINE NEGATIVE (NEGATIVE); OXYCODONE SCREEN, URINE NEGATIVE (NEGATIVE); PROPOXYPHENE SCREEN, URINE NEGATIVE (NEGATIVE); TRICYCLIC ANTIDEPRESSANT,URINE NEGATIVE (NEGATIVE)
[2021-11-20 13:39] LABS: RBC,URINE 0-5 /HPF (0-5); SQUAMOUS EPITHELIAL CELL,UR NONE SEEN (<= Few); WBC,URINE 0-3 /HPF (0-3)
[2021-11-20 13:40] LABS: BACTERIA,URINE Few /HPF (None Seen); MUCUS,URINE Few Strands; SPERM,URINE PRESENT
[2021-11-20] MEDS ORDERED: POTASSIUM CHLORIDE 20 MEQ TABLET PO STA (13:41)
[2021-11-20] MEDS ORDERED: LACTATED RINGERS 1,000 ML IV ONE (13:41)
--- NOTE | 2021-11-20 13:53 | CT Report ---
PROCEDURE: HEAD WO INDICATIONS: Altered mental status TECHNIQUE: Noncontrast 4.5 mm thick angled axial sections acquired from the foramen magnum to the vertex. For r adiation dose reduction, the following was used: automated exposure control, adjustment of mA and/or kV according to patient size. COMPARISON: 05/23/2019 and 09/11/2021 FINDINGS: Image quality: Excellent. CSF spaces: Basal cisterns are patent. No extra-axial fluid collections. Ventricles are normal in size and shape. Brain: No midline shift. No intracranial masses or hemorrhage. Hernández-white matter interface is norm al. Skull and face: Calvarium and visualized facial bones are intact, without suspicious lesions. Sinuses: Visualized sinuses and mastoids are clear. IMPRESSION: No acute intracranial finding. Reviewed by: Remi Armstrong MD on 11/20/2021 1:52 PM PDT Approved by: Remi Armstrong MD on 11/20/2021 1:52 PM PDT Station ID: [id number]
--- NOTE | 2021-11-20 13:56 | CT Report ---
PROCEDURE: CERVICAL SPINE WO INDICATIONS: Altered mental status TECHNIQUE: Noncontrast 3 mm thick sections acquired from the skull base to the T4 level. Sagittal and coronal r eformats were then constructed. For radiation dose reduction, the following was used: automated exp osure control, adjustment of mA and/or kV according to patient size. COMPARISON: 08/10/2019 and 09/11/2021 FINDINGS: Postsurgical changes of C5-C7 anterior and posterior fixation, by means of anterior plate and screw c onstruct with interbody devices and a posterior pedicle screw and stabilizing roby construct. Hardware is intact with no abnormal adjacent lucency to indicate loosening. Degenerative and postoperative st raightening of the usual cervical lordosis. Degenerative anterolisthesis of C4 on C5 measuring 3 mm a nd of C3 on C4 measuring 5 mm. Alignment is similar to 08/10/2019 exam. Diffuse moderate severity deg enerative change driven primarily by bulky facet and uncovertebral hypertrophy along with some french pastry cook ior osteophytic ridging of the endplates at C3-C4 and C4-C5. No suspicious lytic or blastic osseous l esion. No acute finding included lung apices. Regional soft tissues are normal. Otherwise normal alignment. Vertebral body heights maintained. IMPRESSION: Postsurgical and degenerative changes without acute cervical spine abnormality. Reviewed by: Remi Armstrong MD on 11/20/2021 1:55 PM PDT Approved by: Remi Armstrong MD on 11/20/2021 1:55 PM PDT Station ID: [id number]
[2021-11-20 15:24] VITALS: BP 131/91
== END 2021-11-20 15:20 | disposition home or self-care (01) ==
LOC: EDUNIT# → ED 12:03
DX: F15.10 Other stimulant abuse, uncomplicated (principal); E87.6 Hypokalemia; M62.82 Rhabdomyolysis; I48.91 Unspecified atrial fibrillation; F17.200 Nicotine dependence, unspecified, uncomplicated
CPT/HCPCS: 36415; 70450; 72125; 80053; 80306; 80320; 81001; 82550; 83690; 84443; 85025; 85610; 99281; 99284; A9270; J7120; 81003; 87086

== ENCOUNTER 2022-07-30 17:06 | Emergency (ER) | payer MEDICARE, MEDICAID ==
[2022-07-30] MEDS ORDERED: SODIUM CHLORIDE 0.9% 1,000 ML IV STA (17:17)
[2022-07-30 17:35] LABS: BASOPHILS # (AUTO) 0.1 10^3/uL (0.0-0.1); BASOPHILS % (AUTO) 0.8 %; EOSINOPHILS # (AUTO) 0.1 10^3/uL (0.0-0.7); EOSINOPHILS % (AUTO) 2.1 %; HCT - HEMATOCRIT 45.4 % (42.0-52.0); HGB - HEMOGLOBIN 14.5 g/dL (14.0-18.0); LYMPHOCYTES # (AUTO) 1.1 10^3/uL (1.5-3.5); LYMPHOCYTES % (AUTO) 17.9 %; MEAN CORPUSCULAR HEMOGLOBIN 28.2 pg (27.0-31.0); MEAN CORPUSCULAR HGB CONC 31.9 g/dL (32.0-36.0); MEAN CORPUSCULAR VOLUME 88.3 fL (80.0-94.0); MEAN PLATELET VOLUME 9.7 fL (7.4-11.4); MONOCYTES # (AUTO) 0.5 10^3/uL (0.0-1.0); NEUTROPHILS # (AUTO) 4.4 10^3/uL (1.5-6.6); NEUTROPHILS % (AUTO) 70.7 %; PLT - PLATELET COUNT 170 10^3/uL (130-450); RED BLOOD COUNT 5.14 10^6/uL (4.70-6.10); RED CELL DISTRIBUTION WIDTH 14.7 % (12.0-15.0); VBG BASE EXCESS -2.4 mmol/L (-2 - +2); VBG HCO3 25.2 mmol/L (23-28); VBG PCO2 54.4 mmHg (41-51); VBG PH 7.284 (7.31-7.41); VBG PO2 23.5 mmHg (25-47); VBG TOTAL CO2 26.9 mmol/L (24-29); WHITE BLOOD COUNT 6.2 x10^3/uL (4.8-10.8)
[2022-07-30 17:36] LABS: VBG OXYGEN SATURATION 41.2 % (60-80)
[2022-07-30 17:41] LABS: INR 1.1 (0.8-1.2)
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
[2022-07-30 18:13] LABS: ACETAMINOPHEN < 10 ug/mL (10-30); ALBUMIN 3.8 g/dL (3.2-5.5); ALKALINE PHOSPHATASE 66 IU/L (42-121); ALT ALANINE AMINOTRANSFERASE 26 IU/L (10-60); AST ASPARTATE AMINOTRANSFERASE 34 IU/L (10-42); BILIRUBIN,TOTAL 0.9 mg/dL (0.2-1.0); BUN - BLOOD UREA NITROGEN 23 mg/dL (6-20); CALCIUM 8.4 mg/dL (8.5-10.3); CARBON DIOXIDE - CO2 24 mmol/L (21-32); CHLORIDE 108 mmol/L (101-111); CK- CREATINE KINASE 216 IU/L (22-269); CREATININE 1.1 mg/dL (0.6-1.2); ETOH - ETHANOL < 5.0 mg/dL; GFR - MDRD 67 (>89); GLUCOSE 83 mg/dL (70-100); LIPASE 33 U/L (22-51); POTASSIUM 3.9 mmol/L (3.5-5.0); SALICYLATE < 6.0 mg/dL; SODIUM 141 mmol/L (135-145); TOTAL PROTEIN 7.5 g/dL (6.7-8.2)
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
[2022-07-30 18:56] LABS: VBG PH 7.272 (7.31-7.41)
[2022-07-30 18:57] LABS: VBG BASE EXCESS -4.3 mmol/L (-2 - +2); VBG PO2 33.3 mmHg (25-47); VBG TOTAL CO2 24.6 mmol/L (24-29)
[2022-07-30 22:01] LABS: MUDS CUTOFF CONCENTRATIONS CUTOFF CONC BELOW:
[2022-07-30 22:03] VITALS: BP 144/91
[2022-07-30 22:03] LABS: BILIRUBIN,URINE NEGATIVE (NEGATIVE); GLUCOSE, URINE (UA) NEGATIVE (NEGATIVE); KETONES,URINE (UA) 15 mg/dL (NEGATIVE); LEUKOCYTE ESTERASE, URINE NEGATIVE (NEGATIVE); NITRITE,URINE NEGATIVE (NEGATIVE); OCCULT BLOOD,URINE NEGATIVE (NEGATIVE); PROTEIN,URINE NEGATIVE (NEGATIVE); UROBILINOGEN,URINE 1 (NORMAL) E.U./dL (NORMAL)
[2022-07-30 22:17] LABS: THC CANNABINOID SCREEN, URINE POSITIVE (NEGATIVE)
[2022-07-30 22:18] LABS: AMPHETAMINE SCREEN,URINE POSITIVE (NEGATIVE); BARBITURATE SCREEN,UR NEGATIVE (NEGATIVE); BENZODIAZEPINES SCREEN, URINE NEGATIVE (NEGATIVE); COCAINE SCREEN URINE NEGATIVE (NEGATIVE); METHADONE SCREEN, URINE NEGATIVE (NEGATIVE); METHAMPHETAMINES SCREEN, URINE POSITIVE (NEGATIVE); OPIATE SCREEN, URINE NEGATIVE (NEGATIVE); OXYCODONE SCREEN, URINE NEGATIVE (NEGATIVE); PROPOXYPHENE SCREEN, URINE NEGATIVE (NEGATIVE); TRICYCLIC ANTIDEPRESSANT,URINE NEGATIVE (NEGATIVE)
[2022-07-30 22:19] LABS: CLARITY,URINE CLEAR (CLEAR)
--- NOTE | 2022-08-02 04:27 | ED Physician Documentation ---
ED Addendum - Addendum Addendum: 08/02/22 04:22 Received sign out from Dr. Rogers at end of his shift. Please see his note for detailed H+P. In brief, this patient presented for AMS, improved with narcan in field (given 1.6 mg total, divided doses). He reportedly says he took an unknown pill earlier tonight before the AMS. No concerning findings on testing tonight (undertaken and resulted prior to sign out), including blood tests and CTH. UDS is positive for methamphetamines, amphetamines, and cannabinoids. Patient became increasingly awake and alert early in my shift, was AAOx3 and able to stand and ambulate unassisted. He is requesting discharge home. Return precautions are discussed.
== END 2022-07-30 22:20 | disposition home or self-care (01) ==
LOC: EDSEX → EDUNIT# → ED 17:06
DX: R41.82 Altered mental status, unspecified (principal); I10 Essential (primary) hypertension; E11.9 Type 2 diabetes mellitus without complications; F17.200 Nicotine dependence, unspecified, uncomplicated
CPT/HCPCS: 36415; 70450; 80053; 80306; 80307; 81003; 82550; 82803; 83605; 83690; 85025; 85610; 93005; 96360; 96361; 99283; 99284; G0480; 80320; 80329; 81001; 87086

== ENCOUNTER 2022-11-18 13:59 | Emergency (ER) | payer MEDICARE, MEDICAID ==
[2022-11-18 14:13] VITALS: O2SAT 100
[2022-11-18] MEDS ORDERED: cephALEXin 250 MG CAPSULE PO STA (14:41)
[2022-11-18] MEDS ORDERED: SULFAMETH/TRIMETH DS 800/160 MG TABLET PO STA (14:41)
--- NOTE | 2022-11-18 14:47 | ED Physician Documentation ---
PD HPI LOWER EXT INJURY - Stated complaint Stated Complaint: BILAT FOOT PX - Chief complaint Chief Complaint: Ext Problem - History obtained from History obtained from: Patient - Additional information Additional information: 67-year-old gentleman says he was stung by a bee. Note made that his has checked in for similar complaints and he only checked in after. He has bilateral foot pain. History of methamphetamine abuse. PD PAST MEDICAL HISTORY - Past Medical History Cardiovascular: Hypertension, High cholesterol Respiratory: None Neuro: Other Endocrine/Autoimmune: Type 2 diabetes GI: None : None HEENT: None Psych: Other Musculoskeletal: None Derm: None - Past Surgical History Past Surgical History: Yes General: Splenectomy - Present Medications Home Medications: Ambulatory Orders Medication Instructions Recorded Confirmed Triamcinolone 0.1% Cream [Kenalog 1 applic TOP BID #15 gm 06/28/21 0.1% Cream] Meloxicam [Mobic] 7.5 mg PO BID PRN #20 tablet 09/11/21 Sulfamethox/Trimeth 800/160 1 each PO BID #14 tablet 11/18/22 [Bactrim Ds 800/160] cephALEXin [Keflex] 500 mg PO Q6H #28 cap 11/18/22 - Allergies Allergies/Adverse Reactions: Allergies Allergy/AdvReac Type Severity Reaction Status Date / Time baclofen Allergy Hives Verified 11/18/22 14:12 ketorolac [From Toradol] Allergy Hives Verified 11/18/22 14:12 - Social History Does the pt smoke?: Yes Smoking Status: Current every day smoker Does the pt drink ETOH?: No Does the pt have substance abuse?: Yes - Immunizations Immunizations are current?: No Immunizations: TDAP >10years/unknown - POLST Patient has POLST: No PD ED PE NORMAL - Vitals Vital signs reviewed: Yes - General General: Alert and oriented X 3, No acute distress - Extremities Extremities: Other (Multiple nonpurulent picked at probably staphylococcal lesions of both feet. Nothing to culture.) - Neuro Neuro: Alert and oriented X 3, Normal speech Results - Vitals Vitals: Vital Signs - 24 hr 11/18/22 11/18/22 14:06 14:11 Temperature 36.0 C L 36.5 C Heart Rate 99 99 Respiratory 18 18 Rate Blood Pressure 139/102 H 139/102 H O2 Saturation 100 100 Oxygen O2 Source Room air PD Medical Decision Making - ED course ED course: He has multiple little picked at staff looking infections on both feet. I do not see anything consistent with a bee sting. Treated with Keflex and Bactrim. Formal SW consult placed for his who has another issue and social work arranged for respite in a hotel for a couple of nights. Departure - Departure Disposition: Home, Self Care Clinical Impression: Staphylococcal infection of skin Condition: Good Record reviewed to determine appropriate education?: Yes Instructions: ED Staph Infec Abx Tx Only Prescriptions: Sulfamethox/Trimeth 800/160 [Bactrim Ds 800/160] 1 each PO BID #14 tablet cephALEXin [Keflex] 500 mg PO Q6H #28 cap Comments: Call your doctor to arrange a follow-up appointment, make the next available appointment. In the interim, return anytime if worse or if new symptoms develop. Forms: PCP List
--- OUTSIDE RECORDS SUMMARY | 2022-11-18 15:01 | EXTERNAL MEDICAL SUMMARY RPT | Continuity of Care Document ---
Author Name Unknown Address [address] [place] [address] Phone Organization [facility] Address [address] [place] [address] Phone Care Team Providers [employer] Name Role Phone Abdulkadir Fisher Unavailable Unavailable Allergies and Intolerances date description facility reaction severity (no date) baclofen [facility] (no reaction) (no se verity) (no date) ketorolac [facility] (no reaction) (no se verity) Medications date description facility 2022-09-03 00:00 Benzonatate [facility] Problems date description facility 2022-09-03 00:00 Chronic neck pain [facility] 2022-09-17 13:57 Cervicalgia [facility] Results/Labs test date facility value unit notes Social History date description facility 2022-09-03 00:00 Smokes tobacco daily (finding) [facility] Vital Signs date measurement value units 2022-09-03 00:00 BMI 22.8 kg/m2 2022-09-03 00:00 BP_diastolic 88 mmHg 2022-09-03 00:00 BP_systolic 132 mmHg 2022-09-03 00:00 heart_rate 78 /min 2022-09-03 00:00 height_metric 175.26 cm 2022-09-03 00:00 height_standard 69 in 2022-09-03 00:00 o2_saturation 97 % 2022-09-03 00:00 respiration_rate 16 /min 2022-09-03 00:00 temperature_metric 36.56 C 2022-09-03 00:00 temperature_standard 97.8 F 2022-09-03 00:00 weight_metric 70.3 kg 2022-09-03 00:00 weight_standard 154.98 lb
[2022-11-18 15:12] VITALS: BP 130/88
== END 2022-11-18 15:03 | disposition home or self-care (01) ==
LOC: ED 13:59
DX: L08.9 Local infection of the skin and subcutaneous tissue, unspecified (principal); I10 Essential (primary) hypertension; E11.9 Type 2 diabetes mellitus without complications; F17.200 Nicotine dependence, unspecified, uncomplicated
CPT/HCPCS: 99282; 99283; A9270

== ENCOUNTER 2023-03-17 22:38 | Outpatient (CLI) | payer MEDICARE, MEDICAID | END 2023-03-17 23:59 | disposition left against medical advice (07) | LOC: EMS 22:38 | DX: T40.601A Poisoning by unspecified narcotics, accidental (unintentional), initial encounter (principal) ==

== ENCOUNTER 2023-04-26 21:02 | Emergency (ER) | payer MEDICARE, MEDICAID ==
[2023-04-26 21:42] VITALS: BP 133/79; O2SAT 96
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
[2023-04-26] MEDS: LIDOCAINE-EPINEPH-TETRACAINE 3 ML SYRINGE TOP STA (22:05)
== END 2023-04-26 23:00 | disposition home or self-care (01) ==
LOC: ED 21:02
DX: L02.415 Cutaneous abscess of right lower limb (principal); I10 Essential (primary) hypertension; E78.00 Pure hypercholesterolemia, unspecified; E11.9 Type 2 diabetes mellitus without complications; F17.200 Nicotine dependence, unspecified, uncomplicated; Z79.899 Other long term (current) drug therapy
CPT/HCPCS: 10060

== ENCOUNTER 2023-07-16 15:11 | Outpatient (CLI) | payer MEDICAID, MEDICARE | END 2023-07-16 22:51 | disposition left against medical advice (07) | LOC: EMS 15:11 → MERGE 15:11 → UNMERGE 15:11 → EMS 22:51 | DX: Z04.1 Encounter for examination and observation following transport accident (principal) ==

== ENCOUNTER 2023-07-16 22:59 | Outpatient (CLI) | payer MEDICARE | END 2023-07-16 23:59 | disposition critical access hospital (66) | LOC: EMS 22:59 | DX: M25.561 Pain in right knee (principal); M25.562 Pain in left knee; M79.672 Pain in left foot; M79.671 Pain in right foot; G89.29 Other chronic pain | CPT/HCPCS: A0425; A0429 ==

== ENCOUNTER 2023-07-16 23:19 | Emergency (ER) | payer MEDICAID, MEDICARE ==
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
[2023-07-16 23:30] VITALS: BP 135/92; O2SAT 100
[2023-07-16] MEDS: DOXYCYCLINE 100 MG TABLET PO STA (23:44)
[2023-07-16] MEDS: IBUPROFEN 600 MG TABLET PO STA (23:44)
== END 2023-07-16 23:58 | disposition home or self-care (01) ==
LOC: EDUNIT# → UNMERGE 23:19 → MERGE 23:19 → ED 23:19
DX: L03.119 Cellulitis of unspecified part of limb (principal); Z59.02 Unsheltered homelessness
CPT/HCPCS: 99283; A9270

== ENCOUNTER 2023-07-17 00:55 | Outpatient (CLI) | payer MEDICARE | END 2023-07-17 23:59 | disposition critical access hospital (66) | LOC: EMS 00:55 | PROVIDERS: ATTEND Emergency Medicine | DX: R41.82 Altered mental status, unspecified (principal); R29.898 Other symptoms and signs involving the musculoskeletal system; R09.89 Other specified symptoms and signs involving the circulatory and respiratory systems; R22.0 Localized swelling, mass and lump, head; M95.5 Acquired deformity of pelvis; S00.11XA Contusion of right eyelid and periocular area, initial encounter; S72.301A Unspecified fracture of shaft of right femur, initial encounter for closed fracture; V03.90XA Pedestrian on foot injured in collision with car, pick-up truck or van, unspecified whether traffic or nontraffic accident, initial encounter; Y92.413 State road as the place of occurrence of the external cause | CPT/HCPCS: A0425; A0427 ==

== ENCOUNTER 2023-07-17 01:01 | Emergency (ER) | payer MEDICAID, MEDICARE, OTHER ==
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
[2023-07-17 04:15] VITALS: BP 0/0; O2SAT 0
== END 2023-07-17 01:27 | disposition expired ==
LOC: EDBD → ED 01:01 → MERGE 01:01 → ED 01:27
DX: I46.9 Cardiac arrest, cause unspecified (principal); S91.311A Laceration without foreign body, right foot, initial encounter; X58.XXXA Exposure to other specified factors, initial encounter
CPT/HCPCS: 31500; 99285; G0390